=== PATIENT | female | born 1945 | race Caucasian/White ===

== ENCOUNTER 2018-04-28 09:16 | Day surgery (SDC) | payer MEDICARE, BC ==
[~2018-04-28] VITALS: Ht 167.6 cm; Wt 107.4 kg
[~2018-04-28 09:16] MED LIST: ACIDOPHILUS; ATEN50; ATEN50 PO; CIPR500 PO; CITA20 PO; DIGO.25; DILT180; DRON400T; DRON400T PO; ESCI10; ESCI10 PO; ESTMETHS; FENT50TP TOP; FLEC100; FLEC100 PO; FLEC50 PO; GABA100; GLUCHON PO; HYDACE5 PO; HYDR1TAB94; IRBHYD300; MULVITA; OXYACE5T PO; PHENA200 PO; PREG75; PROM25 PO; SAVELLA PO; TRIHYD253A; TRIHYD253B PO; WARF4 PO; WARF5; WARF5 PO; ZOLP10; ZOLP10 PO; [UNRECOGNIZED DRUG - OTHER]
== END 2018-04-28 11:44 | disposition home or self-care (01) ==
LOC: ORSCSDS 09:16
PROVIDERS: Internal Medicine Gastroenterology
PROC: 0DBM8ZX Excision of Descending Colon, Via Natural or Artificial Opening Endoscopic, Diagnostic (ICD-10-PCS; principal; 2018-04-28 10:45)
PROC: 0DBP8ZX Excision of Rectum, Via Natural or Artificial Opening Endoscopic, Diagnostic (ICD-10-PCS; principal; 2018-04-28 10:45)
DX: Z12.11 Encounter for screening for malignant neoplasm of colon (principal); Z86.010 Personal history of colon polyps; K63.5 Polyp of colon; K62.1 Rectal polyp; K63.89 Other specified diseases of intestine; K64.8 Other hemorrhoids; K57.30 Diverticulosis of large intestine without perforation or abscess without bleeding; I10 Essential (primary) hypertension; M79.7 Fibromyalgia; I48.0 Paroxysmal atrial fibrillation; Z87.891 Personal history of nicotine dependence; Z79.01 Long term (current) use of anticoagulants; Z79.899 Other long term (current) drug therapy
CPT/HCPCS: 88305; J7120

== ENCOUNTER → 2018-12-21 | Outpatient (CLI) | payer MEDICARE, BC | END | disposition home or self-care (01) | LOC: LAB 11:34 → LAB SHORT 11:34 | DX: B35.6 Tinea cruris (principal); N76.4 Abscess of vulva | CPT/HCPCS: 87070; 87075; 87205 ==

== ENCOUNTER → 2019-01-14 | Outpatient (CLI) | payer MEDICARE, BC | END | disposition home or self-care (01) | LOC: LAB 11:20 → LAB SHORT 11:20 | DX: N76.4 Abscess of vulva (principal) | CPT/HCPCS: 87070; 87075; 87205 ==

== ENCOUNTER → 2019-01-28 | Outpatient (CLI) | payer MEDICARE, BC | END | disposition home or self-care (01) | LOC: LAB SHORT 11:42 → LAB 11:42 | DX: N76.4 Abscess of vulva (principal) | CPT/HCPCS: 87070; 87075; 87205 ==

== ENCOUNTER 2019-07-01 17:43 | Emergency (ER) | payer MEDICARE, BC ==
[~2019-07-01] VITALS: Ht 167.6 cm; Wt 108.9 kg
[2019-07-01 18:11] LABS: Source, Urine Clean Catch
[2019-07-01 18:13] LABS: BASOPHILS ABSOLUTE AUTO 0.05 K/mm3 (0.00-0.23); BASOPHILS PERCENT AUTO 1 % (0-2); EOSINOPHILS ABSOLUTE AUTO 0.19 K/mm3 (0.00-0.68); EOSINOPHILS PERCENT AUTO 2 % (0-6); Hemoglobin 12.9 g/dL (11.5-16.0); IMMATURE GRAN ABSOLUTE AUTO 0.02 K/mm3 (0.00-0.10); IMMATURE GRAN PERCENT AUTO 0 % (0-1); LYMPHOCYTES ABSOLUTE AUTO 3.89 K/mm3 (0.84-5.20); LYMPHOCYTES PERCENT AUTO 41 % (21-46); MONOCYTES ABSOLUTE AUTO 1.42 K/mm3 (0.16-1.47); MONOCYTES PERCENT AUTO 15 % (4-13); Mean Corpuscular HGB 30.5 pg (26.0-34.0); Mean Corpuscular HGB Conc 32.3 g/dL (31.5-36.5); Mean Corpuscular Volume 95 fL (80-100); Mean Platelet Volume 9.7 fL (9.1-12.4); NEUTROPHILS ABSOLUTE AUTO 3.96 K/mm3 (1.96-9.15); NEUTROPHILS PERCENT AUTO 42 % (41-73); Platelet Count 280 K/mm3 (150-400); RDW Coefficient Variation 13.1 % (11.7-14.2); RDW Standard Deviation 45.2 fL (35.1-46.3); Red Blood Cell Count 4.23 M/mm3 (3.80-5.20); White Blood Cell Count 9.53 K/mm3 (4.00-11.30)
[2019-07-01 18:22] LABS: Bilirubin, Urine Neg (Neg); Blood, Urine 1+ (Neg); Glucose Qualitative, Urine Neg (Neg); Ketones, Urine Neg (Neg); Leukocyte Esterase, Urine 2+ (Neg); Nitrite, Urine Neg (Neg); Protein, Urine Neg (Neg); Urobilinogen, Urine NORM (Normal)
[2019-07-01 18:33] LABS: Prothrombin Time Results 53.9 Sec (9.7-11.5)
[2019-07-01 18:34] LABS: Appearance, Urine Hazy (Clear); Color, Urine Yellow (P-Yellow)
[2019-07-01 18:36] LABS: Red Blood Cells, Urine 0-2 /hpf (0-2); Squamous Epithelial Cells Mod /hpf (Few)
[2019-07-01 18:36] LABS: Alanine Aminotransfer (ALT/SGP 19 U/L (12-78); Albumin, Blood 3.3 g/dL (3.4-5.0); Albumin/Globulin Ratio 0.8 (0.8-1.8); Alk Phos 72 U/L (50-136); Anion Gap 6 mmol/L (6-16); Aspartate Aminotrans (AST/SGOT 21 U/L (12-37); Bilirubin, Total 0.3 mg/dL (0.1-1.0); Blood Urea Nitrogen 32 mg/dL (8-24); Bun/Creatinine Ratio 21.3 (12.0-20.0); CO2, Blood 24 mmol/L (21-32); Calcium, Blood 8.5 mg/dL (8.5-10.1); Chloride, Blood 105 mmol/L (98-108); Glomerular Filtration Rate 36 (60-); Glucose, Blood 105 mg/dL (70-99); Sodium, Blood 135 mmol/L (136-145); Total Protein, Blood 7.3 g/dL (6.4-8.2); Troponin I <0.015 ng/mL (0.000-0.040)
[2019-07-01 18:37] LABS: Bacteria Few /hpf
[2019-07-01 18:42] LABS: International Normalized Ratio 5.98
== END 2019-07-01 19:48 | disposition home or self-care (01) ==
LOC: ER 17:43
PROVIDERS: Emergency Medicine
DX: S00.03XA Contusion of scalp, initial encounter (principal); R10.13 Epigastric pain; R79.1 Abnormal coagulation profile; I48.91 Unspecified atrial fibrillation; F32.9 Major depressive disorder, single episode, unspecified; Z88.0 Allergy status to penicillin; Z88.2 Allergy status to sulfonamides; Z88.5 Allergy status to narcotic agent; Z88.1 Allergy status to other antibiotic agents; Z88.6 Allergy status to analgesic agent; Z88.8 Allergy status to other drugs, medicaments and biological substances; Z79.01 Long term (current) use of anticoagulants; Z79.899 Other long term (current) drug therapy; X58.XXXA Exposure to other specified factors, initial encounter
CPT/HCPCS: 36415; 70450; 71046; 80053; 81001; 84484; 85025; 85610; 87086; 93005; 93010; 96374; 99285-25; A9270-GY; J2550

== ENCOUNTER 2020-12-06 10:06 | Emergency (ER) | payer MEDICARE, BC ==
[~2020-12-06] VITALS: Ht 167.6 cm; Wt 108.0 kg
[2020-12-06] MEDS ORDERED: AMLO5 PO (10:21)
[2020-12-06] MEDS ORDERED: DRON400T (10:21)
[2020-12-06 11:40] LABS: BASOPHILS ABSOLUTE AUTO 0.02 K/mm3 (0.00-0.23); BASOPHILS PERCENT AUTO 0 % (0-2); EOSINOPHILS ABSOLUTE AUTO 0.01 K/mm3 (0.00-0.68); EOSINOPHILS PERCENT AUTO 0 % (0-6); Hematocrit 45.4 % (33.0-51.0); Hemoglobin 15.1 g/dL (11.5-16.0); IMMATURE GRAN ABSOLUTE AUTO 0.04 K/mm3 (0.00-0.10); IMMATURE GRAN PERCENT AUTO 1 % (0-1); LYMPHOCYTES ABSOLUTE AUTO 1.25 K/mm3 (0.84-5.20); LYMPHOCYTES PERCENT AUTO 16 % (21-46); MONOCYTES ABSOLUTE AUTO 1.15 K/mm3 (0.16-1.47); MONOCYTES PERCENT AUTO 15 % (4-13); Mean Corpuscular HGB 30.2 pg (26.0-34.0); Mean Corpuscular HGB Conc 33.3 g/dL (31.5-36.5); Mean Corpuscular Volume 91 fL (80-100); Mean Platelet Volume 9.5 fL (9.1-12.4); NEUTROPHILS ABSOLUTE AUTO 5.16 K/mm3 (1.96-9.15); NEUTROPHILS PERCENT AUTO 68 % (41-73); Platelet Count 312 K/mm3 (150-400); RDW Coefficient Variation 12.8 % (11.7-14.2); RDW Standard Deviation 42.5 fL (35.1-46.3); White Blood Cell Count 7.63 K/mm3 (4.00-11.30)
[2020-12-06 11:53] LABS: Albumin, Blood 2.9 g/dL (3.4-5.0); Albumin/Globulin Ratio 0.6 (0.8-1.8); Bilirubin, Total 0.5 mg/dL (0.1-1.0); Bun/Creatinine Ratio 33.3 (12.0-20.0); Calcium, Blood 9.1 mg/dL (8.5-10.1); Creatinine, Blood 1.11 mg/dL (0.40-1.00); Globulin, Blood 4.6 g/dL (2.2-4.0); Potassium, Blood 3.4 mmol/L (3.5-5.5); Total Protein, Blood 7.5 g/dL (6.4-8.2)
[2020-12-06] MEDS ORDERED: POTA20PAC PO (12:46)
[2020-12-06] MEDS ORDERED: PROM25 PO (12:46)
== END 2020-12-06 13:29 | disposition home or self-care (01) ==
LOC: ER 10:06
PROVIDERS: Emergency Medicine
DX: U07.1 COVID-19 (principal); I48.91 Unspecified atrial fibrillation; E87.6 Hypokalemia; I25.10 Atherosclerotic heart disease of native coronary artery without angina pectoris; I10 Essential (primary) hypertension; K21.9 Gastro-esophageal reflux disease without esophagitis; Z79.899 Other long term (current) drug therapy; Z79.01 Long term (current) use of anticoagulants; Z88.0 Allergy status to penicillin; Z88.2 Allergy status to sulfonamides; Z88.5 Allergy status to narcotic agent; Z88.6 Allergy status to analgesic agent; Z88.1 Allergy status to other antibiotic agents; Z88.8 Allergy status to other drugs, medicaments and biological substances
CPT/HCPCS: 36415; 71045; 80053; 85025; 93005; 93010; 96361; 96374; 99284-25; J2405; J7030

== ENCOUNTER 2021-08-03 06:42 | Inpatient (IN) | payer MEDICARE, BC ==
[~2021-08-03] VITALS: Ht 157.5 cm; Wt 121.6 kg
[~2021-08-03 06:42] MED LIST changes: +AMLO5 PO; +POTA20PAC PO
[2021-08-03 09:31] LABS: BASOPHILS ABSOLUTE AUTO 0.05 K/mm3 (0.00-0.23); BASOPHILS PERCENT AUTO 1 % (0-2); EOSINOPHILS ABSOLUTE AUTO 0.09 K/mm3 (0.00-0.68); EOSINOPHILS PERCENT AUTO 1 % (0-6); Hematocrit 43.7 % (33.0-51.0); Hemoglobin 14.7 g/dL (11.5-16.0); IMMATURE GRAN ABSOLUTE AUTO 0.03 K/mm3 (0.00-0.10); IMMATURE GRAN PERCENT AUTO 0 % (0-1); LYMPHOCYTES ABSOLUTE AUTO 1.44 K/mm3 (0.84-5.20); LYMPHOCYTES PERCENT AUTO 14 % (21-46); MONOCYTES ABSOLUTE AUTO 0.73 K/mm3 (0.16-1.47); MONOCYTES PERCENT AUTO 7 % (4-13); Mean Corpuscular HGB 32.5 pg (26.0-34.0); Mean Corpuscular HGB Conc 33.6 g/dL (31.5-36.5); Mean Corpuscular Volume 97 fL (80-100); Mean Platelet Volume 8.9 fL (9.1-12.4); NEUTROPHILS ABSOLUTE AUTO 7.87 K/mm3 (1.96-9.15); NEUTROPHILS PERCENT AUTO 77 % (41-73); Platelet Count 312 K/mm3 (150-400); RDW Coefficient Variation 13.5 % (11.7-14.2); RDW Standard Deviation 48.1 fL (35.1-46.3); Red Blood Cell Count 4.52 M/mm3 (3.80-5.20); White Blood Cell Count 10.21 K/mm3 (4.00-11.30)
[2021-08-03 09:47] LABS: International Normalized Ratio 1.67; Prothrombin Time Results 17.5 Sec (9.7-11.5)
[2021-08-03 09:52] LABS: Bun/Creatinine Ratio 23.3 (12.0-20.0); Calcium, Blood 9.4 mg/dL (8.5-10.1); Creatinine, Blood 1.16 mg/dL (0.40-1.00); Potassium, Blood 4.1 mmol/L (3.5-5.5)
[2021-08-03 10:23] LABS: SARS-Cov-2 (COVID-19) PCR, MMC NEGATIVE (NEGATIVE)
--- NOTE | 2021-08-03 11:45 | NUR ---
RECEIVED PT FROM ER. PT PLEASANT AND A&O X4. PT REPORTS PAIN AT 8/10 AT THIS TIME. WILL MEDICATE PER EMAR. TRANSFERRED PT TO HOSPITAL BED. TOLERATED WELL.
--- NOTE | 2021-08-03 13:52 | NUR ---
TELE APPLIED AND VERIFIED AT THIS TIME. AFLUTTER, HR 128
--- NOTE | 2021-08-03 14:05 | NUR ---
DR. LOPES NOTIFIED OF PT HR 128 AND AFLUTTER. PT DENIES CP, SEE OTHER VS. WILL GIVE PT'S HOME DOSE OF ATENOLOL NOW AND CTM.
--- NOTE | 2021-08-03 17:46 | NUR ---
SHIFT SUMMARY PT ADMITED FOR R HIP FRACTURE THAT HAPPENED WHILE WORKING IN HER [place]ARD[place] AND TWISTING THE WRONG WAY. SHE HAS BEEN WALKING ON IT X2 WEEKS. PT HAS A H/O AFIB, CVD, DEPRESSION AND INSOMNIA. TELE IN PLACE. PT HAS BEEN TACHY IN LOW 100'S TODAY DUE TO NOT TAKING HER MEDS THIS AM. MEDICATED PER EMAR. NPO AFTER MIDNIGHT. SURGERY TOMORROW AT 0830. INR TO BE DRAWN TOMORROW MORNING. INR NEEDS TO BE 1.2 OR BETTER PER . SCD'S IN PLACE. PT PAIN IN TOLERABLE PER PT. WILL MEDICATE PER EMAR. CALL LIGHT WITHIN REACH.
[2021-08-04 05:06] LABS: BASOPHILS ABSOLUTE AUTO 0.01 K/mm3 (0.00-0.23); BASOPHILS PERCENT AUTO 0 % (0-2); EOSINOPHILS PERCENT AUTO 0 % (0-6); Hemoglobin 14.4 g/dL (11.5-16.0); IMMATURE GRAN ABSOLUTE AUTO 0.04 K/mm3 (0.00-0.10); IMMATURE GRAN PERCENT AUTO 0 % (0-1); LYMPHOCYTES ABSOLUTE AUTO 1.51 K/mm3 (0.84-5.20); LYMPHOCYTES PERCENT AUTO 14 % (21-46); MONOCYTES ABSOLUTE AUTO 0.81 K/mm3 (0.16-1.47); MONOCYTES PERCENT AUTO 8 % (4-13); Mean Corpuscular HGB 31.9 pg (26.0-34.0); Mean Corpuscular HGB Conc 32.7 g/dL (31.5-36.5); Mean Corpuscular Volume 98 fL (80-100); Mean Platelet Volume 9.4 fL (9.1-12.4); NEUTROPHILS ABSOLUTE AUTO 8.12 K/mm3 (1.96-9.15); NEUTROPHILS PERCENT AUTO 77 % (41-73); Platelet Count 306 K/mm3 (150-400); RDW Coefficient Variation 13.5 % (11.7-14.2); RDW Standard Deviation 49.3 fL (35.1-46.3); Red Blood Cell Count 4.51 M/mm3 (3.80-5.20); White Blood Cell Count 10.49 K/mm3 (4.00-11.30)
[2021-08-04 05:25] LABS: International Normalized Ratio 1.05; Prothrombin Time Results 11.3 Sec (9.7-11.5)
[2021-08-04 05:38] LABS: Albumin/Globulin Ratio 0.7 (0.8-1.8); Bilirubin, Total 0.6 mg/dL (0.1-1.0); Bun/Creatinine Ratio 28.3 (12.0-20.0); Calcium, Blood 9.2 mg/dL (8.5-10.1); Creatinine, Blood 1.13 mg/dL (0.40-1.00); Globulin, Blood 4.2 g/dL (2.2-4.0); Potassium, Blood 4.6 mmol/L (3.5-5.5); Total Protein, Blood 7.2 g/dL (6.4-8.2)
--- NOTE | 2021-08-04 08:15 | NUR ---
PT WENT TO OR. PT WAS SITTING UP IN BED AND A&O X4 ON ROOM AIR. ALL FORMS FILLED OUT. BELONGINGS AT BEDSIDE.
--- NOTE | 2021-08-04 10:35 | NUR ---
08/04/21 1035 MAGGIE,KIANA PT NOTED TO HAVE PRE EXISTING DIEZ IN PLACE INTRA OP.
--- NOTE | 2021-08-04 15:14 | NUR ---
POST OP: REPORT RECEIVED FROM PATTERNMAKER HELPERRITO SUAREZ. PT TO UNIT AT ABOUT 1250. PT IS A/O, A BIT DROWSY, AWAKENS TO VOICE. VSS. SURGICAL SITE WNL, ICE PACK IN PLACE. PT TEARFUL AND REPORTS THAT SHE IS NOT PAINFUL, JUST THAT SHE IS TIRED. PT EXPRESSED SORROW TO STAFF PRE OP DUE TO HER PASSING AWAY 2 MONTHS AGO. WILL CTM.
--- NOTE | 2021-08-04 18:49 | NUR ---
SHIFT SUMMARY PT IS POD 0 FOR R TOTAL HIP ARTHROPLASTY. PT TOLERATED PROCEDURE WELL. PT HAD SOME ITCHING ON SCALP FOLLOWING PROCEDURE. ORDER FOR BENADRYL WAS OBTAINED BUT SYMPTOMS RESOLVED ON THEIR OWN. TELE IS IN PLACE. POLAR PACK APPLIED TO RIGHT HIP. PT HAS A DIEZ IN PLACE THAT IS PATENT AND FUNCTIONING, DRAINING DARK YELLOW URINE. IV IN LEFT HAND STARTED LEAKING AND NEW IV WAS STARTED ON RIGHT FOREARM. BULKY GAUZE DRESSING X2 ON RIGHT HIP AND LOWER RIGHT ABD C/D/I. PT A&O 4.
[2021-08-05 04:15] LABS: BASOPHILS ABSOLUTE AUTO 0.01 K/mm3 (0.00-0.23); BASOPHILS PERCENT AUTO 0 % (0-2); EOSINOPHILS PERCENT AUTO 0 % (0-6); Hematocrit 35.4 % (33.0-51.0); Hemoglobin 11.7 g/dL (11.5-16.0); IMMATURE GRAN ABSOLUTE AUTO 0.06 K/mm3 (0.00-0.10); IMMATURE GRAN PERCENT AUTO 0 % (0-1); LYMPHOCYTES PERCENT AUTO 6 % (21-46); MONOCYTES ABSOLUTE AUTO 1.28 K/mm3 (0.16-1.47); MONOCYTES PERCENT AUTO 9 % (4-13); Mean Corpuscular HGB 32.3 pg (26.0-34.0); Mean Corpuscular HGB Conc 33.1 g/dL (31.5-36.5); Mean Corpuscular Volume 98 fL (80-100); Mean Platelet Volume 9.5 fL (9.1-12.4); NEUTROPHILS ABSOLUTE AUTO 11.76 K/mm3 (1.96-9.15); NEUTROPHILS PERCENT AUTO 84 % (41-73); Platelet Count 260 K/mm3 (150-400); RDW Coefficient Variation 13.3 % (11.7-14.2); RDW Standard Deviation 47.8 fL (35.1-46.3); Red Blood Cell Count 3.62 M/mm3 (3.80-5.20); White Blood Cell Count 14.01 K/mm3 (4.00-11.30)
[2021-08-05 04:27] LABS: International Normalized Ratio 1.04; Prothrombin Time Results 11.2 Sec (9.7-11.5)
[2021-08-05 04:34] LABS: Bun/Creatinine Ratio 30.9 (12.0-20.0); Calcium, Blood 8.6 mg/dL (8.5-10.1); Creatinine, Blood 1.23 mg/dL (0.40-1.00); Potassium, Blood 4.6 mmol/L (3.5-5.5)
--- NOTE | 2021-08-05 07:28 | NUR ---
SUMMARY PT HOPING TO BE DISCHARGED TO HOME WITH DAUGHTER TODAY.
--- NOTE | 2021-08-05 15:22 | NUR ---
DR GARCIA ROUNDED ON PT AND REPORTS PT OKAY TO DISCHARGE BY HOSPITALIST SERVICE. PLAN IS TO DC HOME WITH HOME HEALTH.
[2021-08-05] MEDS ORDERED: Acetaminophen325 M1 PO (16:47)
[2021-08-05] MEDS ORDERED: BISA5EC PO (16:48)
[2021-08-05] MEDS ORDERED: DOCU100 PO (16:49)
[2021-08-05] MEDS ORDERED: SULTRIDS PO (16:58)
--- NOTE | 2021-08-05 17:50 | NUR ---
DISCHARGE PT A&O X4. PT PROVIDED WITH WRITTEN AND VERBAL DISCHARGE INSTRUCTION. PT VERBALIZED UNDERSTANDING. PT VSS, PPP, TOLERATING ORAL INTAKE. IV, TELE, AND CATH REMOVED, VOIDING WELL. PT PROVIDED W/ PERSONAL BELONGINGS, SCRIPT AND EXTRA AQUACEL FOR BANDAGE CHANGE. DRESSING C/D/I. PT TRANSPORTED TO [facility]IA , DAUGHTER PROVIDING TRANSPORT.
== END 2021-08-05 17:45 | disposition home health service (06) | DRG 956 ==
LOC: ER 06:42 → MEDS 10:39 → SURS 10:39
PROVIDERS: Emergency Medicine; Orthopaedic Surgery; ADMIT Hospitalist
PROC: 8E0YXBZ Computer Assisted Procedure of Lower Extremity (ICD-10-PCS; 2021-08-04)
PROC: 0SR904A Replacement of Right Hip Joint with Ceramic on Polyethylene Synthetic Substitute, Uncemented, Open Approach (ICD-10-PCS; principal; 2021-08-04 08:30)
DX: S72.051A Unspecified fracture of head of right femur, initial encounter for closed fracture (principal); S32.491A Other specified fracture of right acetabulum, initial encounter for closed fracture; Z68.42 Body mass index [BMI] 45.0-49.9, adult; Z20.822 Contact with and (suspected) exposure to COVID-19; S72.001A Fracture of unspecified part of neck of right femur, initial encounter for closed fracture; M16.11 Unilateral primary osteoarthritis, right hip; I48.91 Unspecified atrial fibrillation; F32.9 Major depressive disorder, single episode, unspecified; G47.00 Insomnia, unspecified; I67.9 Cerebrovascular disease, unspecified; I10 Essential (primary) hypertension; K21.9 Gastro-esophageal reflux disease without esophagitis; G47.33 Obstructive sleep apnea (adult) (pediatric); E66.01 Morbid (severe) obesity due to excess calories; X58.XXXA Exposure to other specified factors, initial encounter; Z87.891 Personal history of nicotine dependence; Z79.01 Long term (current) use of anticoagulants; Z79.899 Other long term (current) drug therapy; Z88.1 Allergy status to other antibiotic agents; Z88.0 Allergy status to penicillin; Z88.2 Allergy status to sulfonamides; Z88.5 Allergy status to narcotic agent
CPT/HCPCS: 36415; 51702; 72170; 72192; 73502; 80048; 80053; 83735; 85025; 85610; 85730; 93005; 93010; 94762; 96372; 97110; 97116; 97162; 97165; 97530; 99285-25; A9270; C1713; C1776; J0171; J0735; J1100; J1644; J1885; J2370; J2405; J2704; J2710; J2795; J3010; J3370; J3430; U0004

== ENCOUNTER → 2021-08-13 | Outpatient (CLI) | payer MEDICARE, BC ==
[~2021-08-13] MED LIST changes: +Acetaminophen325 M1 PO; +BISA5EC PO; +DOCU100 PO; +SULTRIDS PO
== END | disposition home or self-care (01) ==
LOC: LAB SHORT 14:01 → LAB 14:01
DX: R35.0 Frequency of micturition (principal)
CPT/HCPCS: 87086

== ENCOUNTER → 2022-02-18 | Outpatient (CLI) | payer MEDICARE, BC ==
[2022-02-20 11:11] LABS: M-SPIKE, % Not Observed % (Not Observed); PROTEIN,TOTAL,URINE <4.0 mg/dL (Not Estab.)
== END | disposition home or self-care (01) ==
LOC: LAB SHORT 11:00 → LAB 11:00 → LAB FUT 02-14 13:40
PROVIDERS: Internal Medicine Nephrology
DX: N18.32 Chronic kidney disease, stage 3b (principal)
CPT/HCPCS: 84156; 84166

== ENCOUNTER → 2022-07-29 | Outpatient (CLI) | payer MEDICARE, BC | END | disposition home or self-care (01) | LOC: LAB 12:16 → LAB SHORT 12:16 | DX: L02.215 Cutaneous abscess of perineum (principal) | CPT/HCPCS: 87070; 87075; 87205 ==

== ENCOUNTER → 2022-09-26 | Outpatient (CLI) | payer MEDICARE, BC | END | disposition home or self-care (01) | LOC: LAB 11:43 → LAB SHORT 11:43 | DX: R19.7 Diarrhea, unspecified (principal) | CPT/HCPCS: 87329 ==

== ENCOUNTER 2022-10-10 09:11 | Emergency (ER) | payer MEDICARE, BC ==
[~2022-10-10] VITALS: Ht 167.6 cm; Wt 106.1 kg
[2022-10-10 09:49] LABS: BASOPHILS ABSOLUTE AUTO 0.03 K/mm3 (0.00-0.23); BASOPHILS PERCENT AUTO 0 % (0-2); EOSINOPHILS PERCENT AUTO 0 % (0-6); Hematocrit 42.9 % (33.0-51.0); IMMATURE GRAN ABSOLUTE AUTO 0.03 K/mm3 (0.00-0.10); IMMATURE GRAN PERCENT AUTO 0 % (0-1); LYMPHOCYTES ABSOLUTE AUTO 1.11 K/mm3 (0.84-5.20); LYMPHOCYTES PERCENT AUTO 12 % (21-46); MONOCYTES ABSOLUTE AUTO 1.56 K/mm3 (0.16-1.47); MONOCYTES PERCENT AUTO 16 % (4-13); Mean Corpuscular HGB 30.4 pg (26.0-34.0); Mean Corpuscular HGB Conc 32.6 g/dL (31.5-36.5); Mean Corpuscular Volume 93 fL (80-100); Mean Platelet Volume 9.6 fL (9.1-12.4); NEUTROPHILS PERCENT AUTO 71 % (41-73); Platelet Count 201 K/mm3 (150-400); RDW Standard Deviation 44.6 fL (35.1-46.3); Red Blood Cell Count 4.61 M/mm3 (3.80-5.20); White Blood Cell Count 9.53 K/mm3 (4.00-11.30)
[2022-10-10 10:08] LABS: Albumin, Blood 3.1 g/dL (3.4-5.0); Albumin/Globulin Ratio 0.8 (0.8-1.8); Bilirubin, Total 0.6 mg/dL (0.1-1.0); Bun/Creatinine Ratio 16.8 (12.0-20.0); Calcium, Blood 8.7 mg/dL (8.5-10.1); Creatinine, Blood 1.19 mg/dL (0.40-1.00); Globulin, Blood 4.1 g/dL (2.2-4.0); Potassium, Blood 3.5 mmol/L (3.5-5.5); Total Protein, Blood 7.2 g/dL (6.4-8.2)
[2022-10-10 10:28] LABS: Influenza B, PCR NEGATIVE (NEGATIVE); Resp Syncytial Virus, PCR NEGATIVE (NEGATIVE); SARS-Cov-2 (COVID-19) PCR, MMC NEGATIVE (NEGATIVE)
[2022-10-10 10:38] LABS: Influenza A, PCR POSITIVE (NEGATIVE)
== END 2022-10-10 11:39 | disposition home or self-care (01) ==
LOC: ER 09:11
PROVIDERS: Emergency Medicine
DX: J10.1 Influenza due to other identified influenza virus with other respiratory manifestations (principal); I48.20 Chronic atrial fibrillation, unspecified; R19.7 Diarrhea, unspecified; Z20.822 Contact with and (suspected) exposure to COVID-19; Z88.2 Allergy status to sulfonamides; Z88.6 Allergy status to analgesic agent; Z88.1 Allergy status to other antibiotic agents; Z88.0 Allergy status to penicillin; Z79.899 Other long term (current) drug therapy; Z79.01 Long term (current) use of anticoagulants
CPT/HCPCS: 0241U; 71045; 80053; 85025; 93005; 93010; J2405; J7030

== ENCOUNTER → 2022-10-24 | Outpatient (CLI) | payer MEDICARE, BC | END | disposition home or self-care (01) | DX: R05.3 Chronic cough (principal) ==

== ENCOUNTER 2023-09-24 07:09 | Inpatient (IN) | payer MEDICARE, BC ==
[~2023-09-24] VITALS: Ht 167.6 cm; Wt 118.0 kg
[~2023-09-24 07:09] MED LIST changes: +ASCO500 PO; +DILTIAZEM 24HR180 M3 PO; +DYAZIDE 37.5-21 EACH PO; +JANTOVEN2.5 M2 PO; +SILVER SULFADIA2011 TOP; +THERA-D2000 UNIT PO; +TRAZ50 PO
[2023-09-24 07:37] LABS: BASOPHILS ABSOLUTE AUTO 0.02 K/mm3 (0.00-0.23); BASOPHILS PERCENT AUTO 0 % (0-2); EOSINOPHILS ABSOLUTE AUTO 0.01 K/mm3 (0.00-0.68); EOSINOPHILS PERCENT AUTO 0 % (0-6); Hematocrit 42.4 % (33.0-51.0); Hemoglobin 14.1 g/dL (11.5-16.0); IMMATURE GRAN ABSOLUTE AUTO 0.14 K/mm3 (0.00-0.10); IMMATURE GRAN PERCENT AUTO 1 % (0-1); LYMPHOCYTES ABSOLUTE AUTO 2.46 K/mm3 (0.84-5.20); LYMPHOCYTES PERCENT AUTO 10 % (21-46); MONOCYTES PERCENT AUTO 8 % (4-13); Mean Corpuscular HGB 31.3 pg (26.0-34.0); Mean Corpuscular HGB Conc 33.3 g/dL (31.5-36.5); Mean Corpuscular Volume 94 fL (80-100); Mean Platelet Volume 9.7 fL (9.1-12.4); NEUTROPHILS ABSOLUTE AUTO 20.36 K/mm3 (1.96-9.15); NEUTROPHILS PERCENT AUTO 82 % (41-73); Platelet Count 275 K/mm3 (150-400); RDW Coefficient Variation 14.1 % (11.7-14.2); RDW Standard Deviation 48.5 fL (35.1-46.3); Red Blood Cell Count 4.51 M/mm3 (3.80-5.20); White Blood Cell Count 24.99 K/mm3 (4.00-11.30)
[2023-09-24 07:58] LABS: Albumin, Blood 3.1 g/dL (3.4-5.0); Albumin/Globulin Ratio 0.7 (0.8-1.8); Bun/Creatinine Ratio 24.6 (12.0-20.0); Calcium, Blood 9.3 mg/dL (8.5-10.1); Creatinine, Blood 1.22 mg/dL (0.40-1.00); Globulin, Blood 4.5 g/dL (2.2-4.0); Potassium, Blood 4.4 mmol/L (3.5-5.5); Total Protein, Blood 7.6 g/dL (6.4-8.2)
[2023-09-24 08:20] LABS: BASOPHILS PERCENT MAN 0 % (0-2); EOSINOPHILS PERCENT MAN 0 % (0-6); LYMPHOCYTES % ATYPICAL MANUAL 2 % (0-0); LYMPHOCYTES ABSOLUTE MAN 1.99 K/mm3 (0.84-5.20); LYMPHOCYTES PERCENT MAN 6 % (21-46); MONOCYTES ABSOLUTE MAN 1.24 K/mm3 (0.16-1.47); MONOCYTES PERCENT MAN 5 % (4-13); NEUTROPHILS ABSOLUTE MAN 21.74 K/mm3 (1.96-9.15); SEG NEUTROPHILS PERCENT MAN 87 % (41-73); TOTAL CELLS COUNTED 100
[2023-09-24 11:12] LABS: Prothrombin Time Results 80.8 Sec (9.7-11.5)
[2023-09-24 11:21] LABS: International Normalized Ratio 8.7
[2023-09-24 14:04] VITALS: BP 130/85
[2023-09-24] MEDS ORDERED: METF500 PO (14:52)
[2023-09-24] MEDS ORDERED: CENTRUM SILVER1 EAC2 PO (14:53)
[2023-09-24 17:27] LABS: Hematocrit 43.8 % (33.0-51.0); Hemoglobin 14.5 g/dL (11.5-16.0)
--- NOTE | 2023-09-24 19:28 | NUR ---
SHIFT SUMMARY S/P PERFED DIVERTIC, A/O X4, TOLERATING CLEAR DIET, VSS OTHER THAN HEART RATE WHICH WAS ELEVATED WHEN SHE ARRIVED TO THE FLOOR, MEDS PER EMAR, HR DOWN TO 110'S. NO ACUTE EVENTS THIS SHIFT, CALL LIGHT IN REACH.
[2023-09-24 19:36] VITALS: BP 110/72
[2023-09-25 04:07] VITALS: BP 122/83
[2023-09-25 04:47] LABS: BASOPHILS ABSOLUTE AUTO 0.03 K/mm3 (0.00-0.23); BASOPHILS PERCENT AUTO 0 % (0-2); EOSINOPHILS PERCENT AUTO 0 % (0-6); Hematocrit 40.7 % (33.0-51.0); Hemoglobin 13.2 g/dL (11.5-16.0); IMMATURE GRAN ABSOLUTE AUTO 0.17 K/mm3 (0.00-0.10); IMMATURE GRAN PERCENT AUTO 1 % (0-1); LYMPHOCYTES ABSOLUTE AUTO 1.61 K/mm3 (0.84-5.20); LYMPHOCYTES PERCENT AUTO 7 % (21-46); MONOCYTES ABSOLUTE AUTO 1.77 K/mm3 (0.16-1.47); MONOCYTES PERCENT AUTO 7 % (4-13); Mean Corpuscular HGB 31.4 pg (26.0-34.0); Mean Corpuscular HGB Conc 32.4 g/dL (31.5-36.5); Mean Corpuscular Volume 97 fL (80-100); Mean Platelet Volume 9.9 fL (9.1-12.4); NEUTROPHILS ABSOLUTE AUTO 21.36 K/mm3 (1.96-9.15); NEUTROPHILS PERCENT AUTO 86 % (41-73); Platelet Count 280 K/mm3 (150-400); RDW Coefficient Variation 14.3 % (11.7-14.2); RDW Standard Deviation 50.5 fL (35.1-46.3); White Blood Cell Count 24.94 K/mm3 (4.00-11.30)
[2023-09-25 05:19] LABS: Prothrombin Time Results 69.7 Sec (9.7-11.5)
[2023-09-25 05:27] LABS: International Normalized Ratio 7.44
[2023-09-25 05:34] LABS: Bun/Creatinine Ratio 28.1 (12.0-20.0); Calcium, Blood 8.9 mg/dL (8.5-10.1); Creatinine, Blood 1.28 mg/dL (0.40-1.00); Potassium, Blood 4.9 mmol/L (3.5-5.5)
--- NOTE | 2023-09-25 06:10 | NUR ---
SHIFT SUMMARY ADMIT FOR ABD PAIN X5 DAYS, PERF DIVERTIC. PER SHIFT REPORT, NON SURGICAL AT THIS TIME. PT CONTINUES TO C/O 7/10 PAIN, N/V, AND INDEGESTION THIS SHIFT. PT REPORTS PAIN TO ABD THAT RADIATES AROUND TO BACK MORE SO ON LEFT. PT A&OX4, PLEASANT, TEARFUL R/T PAIN AND APOLOGIZING. UP TO BATHROOM W/ SBA SEVERAL TIMES THIS SHIFT. TELEMETRY IN PLACE @106 AFIB PER PIG CASTER. IV INFUSING NS TO R/ AC. WARFARIN ON HOLD R/T cH INR OF 7.44 THIS A.M. THAT IS DECREASED FROM PREVIOUS 8.7 CALL LIGHT W/IN REACH.
[2023-09-25 07:22] VITALS: BP 110/74
[2023-09-25 14:35] VITALS: BP 108/84
--- NOTE | 2023-09-25 14:56 | NUR ---
Pt. is awake in bed and welcomes my visit. Pt. is pleasant, but is unsettled by nausea and has aan emesis bag close by. This elastic yarn twister helper verbalizes that he will keep the visit brief. Facilitate a short discussion regarding plan of care. Pt. welcomed prayer. Prayed with Pt. Pt. verbalized gratitude for the spiritual care visit.
[2023-09-25 19:11] VITALS: BP 111/69
--- NOTE | 2023-09-25 20:16 | NUR ---
SHIFT SUMMARY S/P PERF DIVERTIC, A/OX4, VSS. SHE TOLERATES SMALL SIPS OF WATER PO BUT C/O N/V INTERMITTENTLY, PAIN NOT WELL MANAGED DURING NOC SHIFT WHICH WAS DISCUSSED WITH MD WELL HER NAUSEA. NEW ORDERS OBTAINED FOR PAIN AND NAUSEA IN WHICH PT REPORTS BETTER MANAGEMENT WITH THE DILAUDID. NO OTHER EVENTS THIS SHIFT, CALL LIGHT IN REACH.
[2023-09-26 03:26] VITALS: BP 133/83
[2023-09-26 04:15] LABS: BASOPHILS ABSOLUTE AUTO 0.02 K/mm3 (0.00-0.23); BASOPHILS PERCENT AUTO 0 % (0-2); EOSINOPHILS ABSOLUTE AUTO 0.05 K/mm3 (0.00-0.68); EOSINOPHILS PERCENT AUTO 0 % (0-6); Hemoglobin 11.9 g/dL (11.5-16.0); IMMATURE GRAN ABSOLUTE AUTO 0.13 K/mm3 (0.00-0.10); IMMATURE GRAN PERCENT AUTO 1 % (0-1); LYMPHOCYTES ABSOLUTE AUTO 2.47 K/mm3 (0.84-5.20); LYMPHOCYTES PERCENT AUTO 11 % (21-46); MONOCYTES ABSOLUTE AUTO 1.81 K/mm3 (0.16-1.47); MONOCYTES PERCENT AUTO 8 % (4-13); Mean Corpuscular HGB 31.1 pg (26.0-34.0); Mean Corpuscular HGB Conc 32.2 g/dL (31.5-36.5); Mean Corpuscular Volume 97 fL (80-100); Mean Platelet Volume 9.7 fL (9.1-12.4); NEUTROPHILS ABSOLUTE AUTO 17.56 K/mm3 (1.96-9.15); NEUTROPHILS PERCENT AUTO 80 % (41-73); Platelet Count 280 K/mm3 (150-400); Red Blood Cell Count 3.83 M/mm3 (3.80-5.20); White Blood Cell Count 22.04 K/mm3 (4.00-11.30)
[2023-09-26 04:47] LABS: Albumin, Blood 2.5 g/dL (3.4-5.0); Albumin/Globulin Ratio 0.6 (0.8-1.8); Bilirubin, Total 0.6 mg/dL (0.1-1.0); Bun/Creatinine Ratio 29.9 (12.0-20.0); Calcium, Blood 9.1 mg/dL (8.5-10.1); Creatinine, Blood 1.34 mg/dL (0.40-1.00); Globulin, Blood 4.4 g/dL (2.2-4.0); Potassium, Blood 4.3 mmol/L (3.5-5.5); Total Protein, Blood 6.9 g/dL (6.4-8.2)
--- NOTE | 2023-09-26 05:54 | NUR ---
SUMMARY PT HAD NO ISSUES UNTIL THIS AM. PT WOKE UP VOMITING THIS AM. EMESIS WAS GREEN BILE. PT ALSO REPORTED INCREASE IN DISCOMFORT. PT ISSUES WERE TX PER MAR WITH GOOD RELIEF. PT IS INDEPENDANT IN ROOM AND IS VOIDING WELL. CALL LIGHT IN REACH.
[2023-09-26 07:21] VITALS: BP 132/98
[2023-09-26 10:03] LABS: Prothrombin Time Results 67.4 Sec (9.7-11.5)
[2023-09-26 10:17] LABS: International Normalized Ratio 7.18
[2023-09-26 14:52] VITALS: BP 125/93
--- NOTE | 2023-09-26 16:55 | NUR ---
PT HAS BEEN AOX4 AND INDEPENDENT IN ROOM. PT CONTINUES TO HAVE ABD PAIN. PT STATED PAIN AND NAUSEA HAD WORSENED AFTER MIDNIGHT LAST NIGHT. PT HAD SOME EMESIS AT THE START OF SHIFT AND WAS TREATED PER EMAR. PT HAD TO HAVE ORAL MEDS SPREAD OUT TO TOLERATE TAKING THEM AND SOME WHERE HELD. PT TREATED FOR PAIN PER EMAR. PT ABLE TO MAKE NEEDS KNOWN WILL CONTINUE TO MONITOR.
--- NOTE | 2023-09-26 17:38 | NUR ---
CARE PASSED OVER TO RITO FAM.
[2023-09-26 19:17] VITALS: BP 135/90
--- NOTE | 2023-09-26 19:24 | NUR ---
SHIFT SUMMARY NO ACUTE CHANGES SINCE ASSUMING CARE AT 1730, REPORT TO NEVILLE VERAS.
[2023-09-27] VITALS (22 sets, daily range): BP systolic 90–156; BP diastolic 61–96
--- NOTE | 2023-09-27 05:03 | NUR ---
SUMMARY PT CONTINUES TO HAVE PERIODS OF NAUSEA AND DISCOMFORT. ISSUES HAVE BEEN MANAGED WELL PER MAR. PT HAS BEEN VOIDING WELL. PT NO NEW ISSUES NOTED. PT CURRENTLY SLEEPING WELL. CALL LIGHT IN REACH.
[2023-09-27 10:05] LABS: BASOPHILS ABSOLUTE AUTO 0.02 K/mm3 (0.00-0.23); BASOPHILS PERCENT AUTO 0 % (0-2); EOSINOPHILS ABSOLUTE AUTO 0.14 K/mm3 (0.00-0.68); EOSINOPHILS PERCENT AUTO 1 % (0-6); Hematocrit 34.9 % (33.0-51.0); Hemoglobin 11.5 g/dL (11.5-16.0); IMMATURE GRAN ABSOLUTE AUTO 0.09 K/mm3 (0.00-0.10); IMMATURE GRAN PERCENT AUTO 0 % (0-1); LYMPHOCYTES ABSOLUTE AUTO 1.45 K/mm3 (0.84-5.20); LYMPHOCYTES PERCENT AUTO 7 % (21-46); MONOCYTES ABSOLUTE AUTO 1.76 K/mm3 (0.16-1.47); MONOCYTES PERCENT AUTO 9 % (4-13); Mean Corpuscular HGB 31.6 pg (26.0-34.0); Mean Corpuscular Volume 96 fL (80-100); Mean Platelet Volume 9.2 fL (9.1-12.4); NEUTROPHILS ABSOLUTE AUTO 17.28 K/mm3 (1.96-9.15); NEUTROPHILS PERCENT AUTO 83 % (41-73); Platelet Count 305 K/mm3 (150-400); RDW Coefficient Variation 13.9 % (11.7-14.2); RDW Standard Deviation 49.2 fL (35.1-46.3); Red Blood Cell Count 3.64 M/mm3 (3.80-5.20); White Blood Cell Count 20.74 K/mm3 (4.00-11.30)
[2023-09-27 10:23] LABS: International Normalized Ratio 2.57; Prothrombin Time Results 25.6 Sec (9.7-11.5)
[2023-09-27 10:27] LABS: Bun/Creatinine Ratio 34.3 (12.0-20.0); Calcium, Blood 8.9 mg/dL (8.5-10.1); Creatinine, Blood 1.08 mg/dL (0.40-1.00); Potassium, Blood 4.3 mmol/L (3.5-5.5)
--- NOTE | 2023-09-27 14:50 | NUR ---
PRE-OP PT TO PACU FOR PRE-OP. PT A&OX4, BREATHING 3L O2 VIA NC. GLASSES REMOVED IN PACU. R FA IV RUNNING LR AT TKO. L UPPER ARM POWEGLIDE RUNNING FFP. UNIT STARTED IN PACU BY RITO STEIN, CHECKED WITH RITO LENZ. DENTURES REMOVED IN PACU.
--- NOTE | 2023-09-27 15:21 | NUR ---
PT TAKEN TO OR BY ENOCH GALVAN RN. REPORT GIVEN.ENOCH NOTIFIED THAT 1 OF 4 UNITS OF FFP COMPLETED, LOPRESSOR GIVEN, AND BLOOD DRAW ORDERED FOR 15 MINUTES AFTER FINAL DOSE OF FFP. ALSO FINE CRACKLES NOTED TO LLL AND O2 INCREASED TO 3L SINCE PT'S O2 SATURATION DECREASED TO 88% WHILE ON 2L. O2 SATURATION IMPOROVED TO 91% ON 3L.
--- NOTE | 2023-09-27 15:45 | NUR ---
09/27/23 1545 Clara Inman NO PREOP ANTIBIOTICS ORDERED PATIENT IS ON SCHEDULED ANTIBIOTICS PER .
--- NOTE | 2023-09-27 18:40 | NUR ---
ATTEMPTED TO CALL REPORT TO ORACLE DATABASE MANAGER, GINO BUSBY REQUESTED REPORT BE GIVEN TO NOC RN.
--- NOTE | 2023-09-27 18:50 | NUR ---
TRANSFER TO PCU: PATIENT ARRIVES TO PCU POST SURGERY. ALERT AND ORIENTED, ABLE TO ANSWER QUESTIONS APPROP. COMPLAINS OF ABDOMINAL/BACK PAIN. MIDLINE EXP LAP INCISION WITH MINIMAL DRAINAGE AND NEW BRIGHT RED COLOSTOMY WITH MODERATE BLEEDING IN LEFT LOWER QUAD. EXP LAP MIDLINE INCISION AND COLOSTOMY DRESSING OVERLAPPING, EXP MIDLINE INCISION DRAINAGE LEAKING SMALL AMOUNT RED DRAINAGE INTO COLOSTOMY SITE. NG TUBE SECURED AT NARES AND DRAINING THICK DARK GREEN DRAINAGE TO INTERMIT LOW SUCTION. TELE SHOWING AFIB WITH HR 140-160'S. SBP 90'S. DENIES CHEST PAIN AT THIS TIME. SATING 98% ON 6L AT THIS TIME. DR. BRUNO CALLED AND UPDATED ON PATIENT CONDITION. THIS RN DISCUSSED VITALS, ABDOMINAL PAIN, INCISION SITE/COLOSTOMY, ATRIAL FIBRILLATION, IV METOPROLOL, TOTAL OF 4 UNITS OF FFP, CURRENT NS ORDER, AND OVERALL PATIENT PRESENTATION. LAB TO COME DRAW PT AND INR, NO OTHER LAB ORDERS FROM DR. BRUNO, PLAN FOR DR. BRUNO TO COME TO BEDSIDE AND ASSESS PATIENT HERSELF. FAMILY AT BEDSIDE. ORIENTED TO UNIT AND CALL LIGHT. BED IN LOW AND LOCKED POSITION. POST OP VITALS IN PROGRESS. REPORTED OFF TO HAND CANDY CUTTER RN DEE.
--- NOTE | 2023-09-27 19:00 | NUR ---
ATTEMPTED TO GIVE REPORT TO DEE VERAS, UNABLE TO TAKE REPORT.
--- NOTE | 2023-09-27 19:15 | NUR ---
PT'S MEDICATIONS TAKEN TO PCU AND LOCKED IN LOCK BOX PER ROUTINE. ATTEMPTED TO PROVIDE REPORT, DEE VERAS DECLINED.
[2023-09-27 19:26] LABS: BASOPHILS ABSOLUTE AUTO 0.02 K/mm3 (0.00-0.23); BASOPHILS PERCENT AUTO 0 % (0-2); EOSINOPHILS ABSOLUTE AUTO 0.06 K/mm3 (0.00-0.68); EOSINOPHILS PERCENT AUTO 0 % (0-6); Hemoglobin 12.3 g/dL (11.5-16.0); IMMATURE GRAN ABSOLUTE AUTO 0.07 K/mm3 (0.00-0.10); IMMATURE GRAN PERCENT AUTO 1 % (0-1); LYMPHOCYTES ABSOLUTE AUTO 0.65 K/mm3 (0.84-5.20); LYMPHOCYTES PERCENT AUTO 5 % (21-46); MONOCYTES ABSOLUTE AUTO 1.65 K/mm3 (0.16-1.47); MONOCYTES PERCENT AUTO 12 % (4-13); Mean Corpuscular HGB 31.9 pg (26.0-34.0); Mean Corpuscular HGB Conc 33.2 g/dL (31.5-36.5); Mean Corpuscular Volume 96 fL (80-100); Mean Platelet Volume 9.3 fL (9.1-12.4); NEUTROPHILS ABSOLUTE AUTO 11.64 K/mm3 (1.96-9.15); NEUTROPHILS PERCENT AUTO 83 % (41-73); Platelet Count 342 K/mm3 (150-400); RDW Coefficient Variation 13.8 % (11.7-14.2); RDW Standard Deviation 48.8 fL (35.1-46.3); Red Blood Cell Count 3.86 M/mm3 (3.80-5.20); White Blood Cell Count 14.09 K/mm3 (4.00-11.30)
[2023-09-27 19:40] LABS: International Normalized Ratio 1.4
[2023-09-27 19:45] LABS: Prothrombin Time Results 14.4 Sec (9.7-11.5)
[2023-09-28] VITALS (9 sets, daily range): BP systolic 82–138; BP diastolic 55–109
--- NOTE | 2023-09-28 01:53 | NUR ---
SHIFT SUMMARY PATIENT RECIEVING 75 NS, HR UP TO TH E160'S AFIB TYPICALLY 120-140. PATIENT IN OBVIOUS PAIN, DRVanda AT THE BEDSIDE. DENIES CHEST PAIN PRESSURE OR SOB. BLOOD PRESSURE SOFTER, ABD DRESSING WITH SMALL AMOUNT OF DRAINAGE, NEW COLOSTOMY, WITH MINIMAL DRAINAGE, BOTH CIARA RED. NOT OOZING MORE THAN SEEN ON ARRIVAL .PATIENT WITH SCD'S, REPOSITIONED OLD LINEN OUT, BED BATH GIVEN, TO CHANGE DRESSING IN THE AM. AFTER INCREASED TREATMENT TO PAIN, HR 100-120'S. TYPICALLY 100'S WHILE SLEEPING PATIENT A/OX4 PLEASANT COOPERATIVE WITH CARE, DENIES REPOSITIONS AT TIMES.
[2023-09-28 04:02] LABS: BASOPHILS ABSOLUTE AUTO 0.03 K/mm3 (0.00-0.23); BASOPHILS PERCENT AUTO 0 % (0-2); EOSINOPHILS ABSOLUTE AUTO 0.01 K/mm3 (0.00-0.68); EOSINOPHILS PERCENT AUTO 0 % (0-6); Hematocrit 35.8 % (33.0-51.0); Hemoglobin 11.5 g/dL (11.5-16.0); IMMATURE GRAN ABSOLUTE AUTO 0.13 K/mm3 (0.00-0.10); IMMATURE GRAN PERCENT AUTO 1 % (0-1); LYMPHOCYTES ABSOLUTE AUTO 1.26 K/mm3 (0.84-5.20); LYMPHOCYTES PERCENT AUTO 8 % (21-46); MONOCYTES ABSOLUTE AUTO 1.96 K/mm3 (0.16-1.47); MONOCYTES PERCENT AUTO 12 % (4-13); Mean Corpuscular HGB Conc 32.1 g/dL (31.5-36.5); Mean Corpuscular Volume 97 fL (80-100); Mean Platelet Volume 9.5 fL (9.1-12.4); NEUTROPHILS ABSOLUTE AUTO 12.82 K/mm3 (1.96-9.15); NEUTROPHILS PERCENT AUTO 79 % (41-73); Platelet Count 318 K/mm3 (150-400); RDW Coefficient Variation 13.8 % (11.7-14.2); RDW Standard Deviation 49.4 fL (35.1-46.3); Red Blood Cell Count 3.71 M/mm3 (3.80-5.20); White Blood Cell Count 16.21 K/mm3 (4.00-11.30)
[2023-09-28 04:20] LABS: Albumin/Globulin Ratio 0.5 (0.8-1.8); Bilirubin, Total 2.1 mg/dL (0.1-1.0); Bun/Creatinine Ratio 24.8 (12.0-20.0); Calcium, Blood 8.2 mg/dL (8.5-10.1); Creatinine, Blood 1.65 mg/dL (0.40-1.00); Globulin, Blood 3.7 g/dL (2.2-4.0); Potassium, Blood 5.2 mmol/L (3.5-5.5); Total Protein, Blood 5.7 g/dL (6.4-8.2)
--- NOTE | 2023-09-28 19:48 | NUR ---
Shift Summary Pt alert, oriented x4; calm and cooperative with care. Pt resting in bed, up with 1-2 person assist (to manage tubing/wires). Ng tube in place, 550cc output form last night and today; dark green in color. Pt reporting pain t/o shift, medicated per orders. Pt reporting nauses t/o shift, medicated per orders. Pt denies chest pain/pressure, sob, and dizziness. Tele afib, 100-110's this am, trending up t/o shift, notifed Dr Love and discussed home medication and NPO stasus, new orders entered for lopressor iv scheduled. Bp stable. Abd, soft, tender on palp, with hypoactive bt t/o; no drainage from ostomy t/o shift. Spo2 >90% on 4l o2 via nc, titrated down to 3l o2 via nc. Other vss. No other acute chagnes noted. Report given to oncoming rn.
[2023-09-29] VITALS (25 sets, daily range): BP systolic 104–159; BP diastolic 67–115
--- NOTE | 2023-09-29 05:11 | NUR ---
SUMMARY PT HEART RATE CONTINUALLY RETURNED TO 150'S DESPITE IV LOPRESSOR. PROVIDER WAS CALLED AND A BOLUS OF CARDIZEM WAS ORDERED. PT RATE DECREASED FOR SHORT PERIOD. PT BP'S REMAINED STABLE. PROVIDER CALLED AND A CARDIZEM DRIP WAS ORDERED. AWAITING MEDICATION. PT PAIN HAS BEENMANAGED WELL PER MAR WITH DILAUDID. PT NAUSEA CONTINUES TO REQUIRE MEDS FOR RELIEF. PT NG TUBE CONTINUE TO DRAIN GREEN BILE. PT MIDLINE DRESSING REMAINS INTACT WITH SOME EDGE SHADOWING. PT COLOSTOMY HAD NO NOTED OUTPUT AND STOMA IS RES. PT DIEZ DRAINING TO GRAVITY.
--- NOTE | 2023-09-29 08:02 | NUR ---
AM Note Pt alert, oriented x4, calm and cooperative with care. Pt resting in bed. Pt reporting pain to abd, medicated per emar. Pt reports intermittent nauses, gas pains and belching. Pt denies chest pain/pressure, sob, dizziness and numb/tingling. Tele afib 120-130's, on cardizem gtt titrated up to [address] Love at bedside this am, hr 120-140 after increased cardizem, ok to given lopressor iv now. Spo2 >90% on 3l o2 via nc, titrated down to 2l o2 via nc. Abd soft, tender, hypoactive bt t/o. Llq ostomy noted, continues to be red, slightly bloody and no output. No edema noted at this time. Other vss. Will continue to monitor.
[2023-09-29 09:01] LABS: Bun/Creatinine Ratio 34.7 (12.0-20.0); Calcium, Blood 8.5 mg/dL (8.5-10.1); Creatinine, Blood 1.18 mg/dL (0.40-1.00); Potassium, Blood 4.5 mmol/L (3.5-5.5)
--- NOTE | 2023-09-29 14:37 | NUR ---
Transfer of care Pt hr continues to be in 120-140's, Dr Love aware, new order for lopressor change to q4. Report given to rn assuming care of patient.
--- NOTE | 2023-09-29 16:15 | NUR ---
Pt. is sitting in a recliner and welcomes my visit. Pt. is unsettled about an uncertain plan of care. Facilitate a life review. Listen with empathy and a calming presence. Consider matters of lisa and belief and establish rapport. Pt. displays evidence of increased trust and displays evidence of awareness and engagement. Prayed with Pt. Pt. verbalized gratitude for the spiritual care visit and welcomed this glue mill operator to return.
--- NOTE | 2023-09-29 17:25 | NUR ---
ASSUME CARE AT 1500: PT REMAINS ON CARDIZEM GTT AT 20MG/HR HRR AFIB 120-140'S, METOPROLOL PUSH 5MG IV GIVEN AT 1600 FOLLOWED BY DIG LOAD 30 MINS AFTER RATE AT 100-120'S AT THIS TIME PER DR SORIA TO GIVE THE SECOND DOSE OF DIGOXIN TONIGHT AND WATCH HRR REMAINED THE SAME TO POSSIBLY START AMIO GTT. SBP REMAINED >110, SPO2 ABOVE 90% ON 2L OF O2, AFEBRILE. NGT IN PLACE HOOKED UP TO LOW INTERMITTENT SUCTION HAS DARK GREEN BILE DRAINAGE, PT CONTINUES TO BLADDER TRAIN WILL PULL CATHETER OUT WHEN PT GETS BACK IN BED PER PT'S REQUEST. PAIN MANAGED WITH IV DILAUDID, REGLAN AND ZOFRAN FOR NAUSEA GIVEN WELL. PT OKAY TO HAVE ICE CHIPS PER DR FLORES. COLOSTOMY AND ABD DRESSING REMAINED INTACT. NS RUNNING AT 75MLS/HR. NO OTHER ISSUES REPORTED, WILL REPORT TO ONCOMING SHIFT
[2023-09-30] VITALS (40 sets, daily range): BP systolic 108–138; BP diastolic 54–105
[2023-09-30 04:26] LABS: Calcium, Blood 8.3 mg/dL (8.5-10.1); Creatinine, Blood 1.03 mg/dL (0.40-1.00); Potassium, Blood 4.5 mmol/L (3.5-5.5)
--- NOTE | 2023-09-30 05:09 | NUR ---
SHIFT SUMMARY PT A&Ox4, CALLS AND COMMUNICATES NEEDS APPROPRIATELY. BP STABLE, AFIB 100-130's, DENIES CP/PRESSURE. SpO2> 92% 2-3L VIA NC, DENIES SOB. NG TUBE REMAINS PATENT AND IN PLACE CONNECTED TO LOW-INTERMITTENT SUCTION WITH BROWN/BILE OUTPUT. PT UNABLE TO VOID, MONITORED WITH BLADDER SCANS. ACCURACY TO BLADDER SCANS IS LIMITED D/T MIDLINE INCISION AND OSTOMY. PT WITH C/O OF BLADDER DISCOMFORT AND BLADDER IS DISTENDED, DISCUSSED WITH MOTORCYCLE SALES ASSOCIATE. STRAIGHT CATH DONE WITH 350mLs OUT. NO BM THIS SHIFT. PT WITH C/O NAUSEA WITH NO VOMITING. PT ALSO WITH C/O PAIN THROUGHOUT SHIFT. MIDLINE DRESSING REMAINS PATENT. OSTOMY PATENT, VERY MINIMAL LIQUID RED/BROWN OUTPUT THIS SHIFT. NO OTHER EVENTS, WILL REPORT TO ONCOMING RN.
[2023-09-30 10:13] LABS: Source, Urine Foley catheter
[2023-09-30 10:26] LABS: Appearance, Urine Clear (Clear); Bilirubin, Urine Neg (Neg); Blood, Urine 2+ (Neg); Color, Urine Yellow (P-Yellow); Glucose Qualitative, Urine Neg (Neg); Ketones, Urine 2+ (Neg); Leukocyte Esterase, Urine Neg (Neg); Nitrite, Urine Neg (Neg); Protein, Urine 3+ (Neg); Urobilinogen, Urine NORM (Normal)
[2023-09-30 10:44] LABS: Bacteria Rare /hpf; Hyaline Casts 0-2 /lpf (0-2); Squamous Epithelial Cells Not Seen /hpf (Few); White Blood Cells, Urine Not Seen /hpf (0-5)
--- NOTE | 2023-09-30 10:48 | NUR ---
AM NOTE: PATIENT ALERT AND ORIENTED. EXPRESSES FEELING DEPRESSED AND SAD THIS MORNING. ABLE TO HELP STAFF TURN IN BED. OVERALL WEAKNESS NOTED AND PAIN WHEN MOVING IN BED. DENIES N/T. PT/OT ORDERS IN PLACE. PLAN FOR PATIENT UP IN RECLINER THIS AFTERNOON. ON 3L NASAL CANNULA SATING MID 90'S. DENIES SOB. LUNGS SOUNDS CLEAR AND DIM IN BASES. DENIES COUGH/SOB. EVEN AND UNLABORED RESPIRTATIONS. TELE SHOWING AFIB WITH HR 110-120'S. CARDIZEM GTT INFUSING PER EMAR. SCHEDULED IV METOPROLOL AND IV DIG THIS AM. SEISMOGRAPH CHIEF AWARE OF CARDIAC MEDICATIONS. DENIES CHEST PAIN/PRESSURE/PALPITATIONS. BP STABLE WITH SBP 110-130. PPP. DEXTROSE 5% INFUSING PER EMAR. BOWEL TONES HYPOACTIVE. COMPLAINS OF INTERMIT NAUSEA AND ABDOMINAL PAIN. MIDLINE INCISION WITH MINIMAL DRAINAGE ON DRESSING. COLOSTOMY DRESSING IN PLACE. STOMA BRIGHT RED AND SOME BLOODY DRAINAGE IN BAG. PATIENT IS UNAWARE IF SHE IS PASSING GAS. DENIES BOWEL MOVEMENT. BELCHING AT TIMES. NG TUBE IN PLACE TO LIS, DRAINING DARK GREEN/BROWN TINGED BILE. PATIENT EATING ICE CHIPS. TAPE REPLACED ON NG TUBE. SKIN OVERALL PALE AND COOL WITH SCATTERED BRUISING. DR. SORIA BY THIS AM, THIS RN DISCUSSED HEART RATE, BLOOD PRESSURE, CARDIAC MEDICATIONS, NG DRAINAGE, COLOSTOMY SITE AND URINARY RETENTION WITH STRAIGHT CATHS. ORDERS TO PLACE NEW DIEZ CATH. DIEZ CATH PLACED AND NEW UA SENT TO LAB PER PROTOCOL. ORAL CARE COMPLETED THIS AM. ABX INFUSED. CALL LIGHT IN REACH.
--- NOTE | 2023-09-30 14:03 | NUR ---
DR. FLORES IN TO SEE PATIENT NG TUBE, COLOSTOMY AND MIDLINE INCISION ASSESSED. PLAN TO CONTINUE NG TO LIS, OKAY TO HAVE ICE CHIPS. DR. FLORES AWARE NG TUBE OUTPUT DILUTED WITH ICE CHIP INTAKE. THIS RN SUBTRACTING ICE INTAKE FROM NG OUTPUT. NO NEW ORDERS FOR THIS RN TO PLACE. OT AND PT BY. PATIENT ENCOURAGED TO GET UP TO RECLINER, DECLINES AT THIS TIME. MEDICATED FOR PAIN. CARDIZEM GTT TITRATED DOWN. PATIENT HR 80-90'S AT THIS TIME. REFLEXOLOGIST UPDATED. DENIES NEEDS AT THIS TIME. CALL LIGHT IN REACH.
--- NOTE | 2023-09-30 16:51 | NUR ---
OSTOMY DRESSING AND MIDLINE DRESSING CHANGED. HR TRENDING 90-110'S CARDIZEM GTT TITRATED DOWN. SBP STABLE. INTERMIT NAUSEA - RELIEVED WITH REGLAND AND ZOFRAN. PATIENT CONTINUES TO EAT ICE CHIPS. NG TUBE TO LIS.
--- NOTE | 2023-09-30 18:40 | NUR ---
SHIFT SUMMARY: NO ACUTE CHANGES SEE PREVIOUS NOTES. NG TUBE CONTINUES TO LIS WITH DARK GREEN/BROWN TINGED BILE OUTPUT. PATIENT EATING ICE CHIPS. REMAINS AFIB WITH HR 90-120'S. CARDIZEM GTT AT 10. SBP REMAINS STABLE. PATIENT SLEEPING AT THIS TIME. 3L O2 NASAL CANNULA SATING MID 90'S. OCCASIONAL NAUSEA, RELIEVED WITH PRN MEDS. BOWL TONES PRESENT. NO BOWEL MOVEMENT INTO COLOSTOMY THIS SHIFT. MINIMAL RED TINGED DRAINAGE. OSTOMY BAG/DRESSING CHANGED THIS AFTERNOON. D5 CONTINUES TO INFUSE. DAUGHTER IN TO VISIT THIS AFTERNOON. CALL LIGHT IN REACH.
[2023-10-01] VITALS (37 sets, daily range): BP systolic 110–145; BP diastolic 67–118
[2023-10-01 04:19] LABS: Bun/Creatinine Ratio 25.2 (12.0-20.0); Calcium, Blood 8.1 mg/dL (8.5-10.1); Creatinine, Blood 1.07 mg/dL (0.40-1.00)
--- NOTE | 2023-10-01 05:08 | NUR ---
SHIFT SUMMARY PT A&Ox4, CALLS AND COMMUNICATES NEEDS APPROPRIATELY. BP STABLE, AFIB 80-120's, DENIES CP/PRESSURE. SpO2> 92% 3L VIA NC, DENIES SOB. NG TUBE REMAINS PATENT AND IN PLACE CONNECTED TO LOW-INTERMITTENT SUCTION WITH BROWN/BILE OUTPUT. DIEZ CATH PATENT, DRAINING TO GRAVITY. PT WITH C/O NAUSEA WITH NO VOMITING, PT ALSO WITH C/O PAIN THROUGHOUT SHIFT MEDICATED PBOTH PER EMAR. MIDLINE DRESSING REMAINS PATENT. OSTOMY PATENT, VERY MINIMAL LIQUID RED/BROWN OUTPUT THIS SHIFT. NO OTHER EVENTS, WILL REPORT TO ONCOMING RN.
--- NOTE | 2023-10-01 11:45 | NUR ---
Pt. is sitting up in a chair when she welcomes my visit. Pt. is pleasant. Pt. verbalizes an update on her progress and verbalizes that she is encouraged and wants to get better. Listen with empathy and a calming presence. Pt. verbalizes that she has had good support from family members and her seismic prospecting observer. When asked by this groundsman if she would life a bible, Pt. verbalized that she did. Will bring the Pt. miguelangel BLACK/Melody. Prayed with Pt. Pt. verbalized gratitude for the spiritual care visit.
--- NOTE | 2023-10-01 12:50 | NUR ---
PATIENT ALERT AND ORIENTED. DENIES PAIN THIS AM. MIDLINE INCISION AND COLOSTOMY WNL. DRESSING C/D/I. NO OUTPUT NOTED FROM OSTOMY. STOMA RED IN COLOR. NG TUBE REMAINS IN PLACE TO LIS. DARK GREEN/BROWN OUTPUT. BOWEL TONES HYPOACTIVE. PATIENT DENIES GAS. PATIENT EATING ICE CHIPS. REMAINS NPO OTHERWISE. WEARING 3L NASAL CANNULA SATING MID 90'S. DENIES SOB/COUGH. TELE SHOWING AFIB WITH HR 90-130'S. SCHEDULED IV METOPROLOL PUSHES PER EMAR AND CARDIZEM GTT. DR. SORIA IN THIS AM TO ASSESS. AM IV DIGOXIN DISCONTINUED. SCD'S IN PLACE. DENIES CHEST PAIN/PRESSURE. PPP. UP TO RECLINER WITH OT THIS AM AND BACK TO BED. VITALS STABLE.
--- NOTE | 2023-10-01 13:11 | NUR ---
DR. FLORES CALLED BY THIS RN TO DISCUSS COLOSTOMY, NG TUBE TO LIS AND ITS OUTPUT. DR. FLORES AWARE OF OSTOMY BEING NONPRODUCTIVE AT THIS POINT AND T CONTINUE NG TUBE TO LIS, OKAY TO CONTINUE ICE CHIPS. DR. FLORES OKAY WITH STARTING HEPARIN GTT. DR. SORIA CALLED AND UPDATED ON DR. FLORES'S VERBAL OKAY FOR HEPARIN. DR. SORIA TO PLACE ORDERS. PATIENT SLEEPING AT THIS TIME, CALL LIGHT IN REACH.
[2023-10-01 14:12] LABS: Anti-Xa UFH, PHA Monitoring <0.10 IU/mL; International Normalized Ratio 1.19; Prothrombin Time Results 12.4 Sec (9.7-11.5)
[2023-10-01 14:20] LABS: BASOPHILS ABSOLUTE AUTO 0.03 K/mm3 (0.00-0.23); BASOPHILS PERCENT AUTO 0 % (0-2); EOSINOPHILS ABSOLUTE AUTO 0.15 K/mm3 (0.00-0.68); EOSINOPHILS PERCENT AUTO 1 % (0-6); Hemoglobin 9.8 g/dL (11.5-16.0); IMMATURE GRAN ABSOLUTE AUTO 0.31 K/mm3 (0.00-0.10); IMMATURE GRAN PERCENT AUTO 3 % (0-1); LYMPHOCYTES ABSOLUTE AUTO 1.31 K/mm3 (0.84-5.20); LYMPHOCYTES PERCENT AUTO 11 % (21-46); MONOCYTES ABSOLUTE AUTO 1.32 K/mm3 (0.16-1.47); MONOCYTES PERCENT AUTO 11 % (4-13); Mean Corpuscular HGB 31.1 pg (26.0-34.0); Mean Corpuscular HGB Conc 31.6 g/dL (31.5-36.5); Mean Corpuscular Volume 98 fL (80-100); Mean Platelet Volume 9.1 fL (9.1-12.4); NEUTROPHILS ABSOLUTE AUTO 8.74 K/mm3 (1.96-9.15); NEUTROPHILS PERCENT AUTO 74 % (41-73); NRBC ABSOLUTE 0.04 K/mm3 (0.00-0.02); NRBC Auto 0.3 /100 WBC (0.0-0.2); Platelet Count 331 K/mm3 (150-400); RDW Standard Deviation 50.8 fL (35.1-46.3); Red Blood Cell Count 3.15 M/mm3 (3.80-5.20); White Blood Cell Count 11.86 K/mm3 (4.00-11.30)
--- NOTE | 2023-10-01 15:03 | NUR ---
HEPARIN GTT STARTED PER PHARMACY. PHYSICAL THERAPY IN ROOM AT THIS TIME. VITAL SIGNS STABLE. PATIENT COMPLAINS OF ABDOMINAL PAIN THAT RADIATES TO HER BACK. MEDICATED PER EMAR WITH MILD RELIEF. OSTOMY CONTINUES TO BE NONTPRODUCTIVE, STOMA REMAINS RED.
--- NOTE | 2023-10-01 15:52 | NUR ---
THIS RN COMPLETED CATH CARE FOR 2ND TIME THIS SHIFT. PATIENT DISCUSSES SMALL BUMPS PRESENT ON LABIA AND HOW SHE HAS HAD THESE FOR A WHILE AND HOW THEY INTERMIT DRAIN/BLEED. VERY SMALL AMOUNT OF BLEEDING NOTED WITH WIPING, SAME AMOUNT SEEN YESTERDAY. CONSIDERING PATIENT IS ON HEPARIN GTT, THIS RN TO MONITOR CLOSELY.
--- NOTE | 2023-10-01 18:19 | NUR ---
SHIFT SUMMARY: NO ACUTE CHANGES, SEE PREVIOUS NOTES. VITAL SIGNS REMAIN STABLE. HR 90-130'S DEPENDING ON ACTIVITY. PT/OT IN TO WORK WITH PATIENT UP TO RECLINER AND STANDING AT EDGE OF BED. CARDIZEM GTT AND HEPARIN GTT CONTINUES. D5 CONTINUES TO INFUSE. Q2 TURNING AND NEEDED. DIEZ CATH CONTINUES TO DRAIN. CATH CARE COMPLETED THROUGHOUT SHIFT. NG TUBE CONTINUES TO DRAIN TO LIS. PATIENT CONTINUES TO EAT ICE CHIPS. OSTOMY CONTINUES TO BE NONPRODUCTIVE AT THIS POINT. NO SIGNS OF BLEEDING WITHIN OSTOMY/MIDLINE INCISION. THIS RN CONTINUES TO CHECK BONY AREA/LABIA BUMPS, NO ADDITIONAL BLEEDING (SEE PREVIOUS NOTE). PATIENT DENIES NEEDS AT THIS TIME. CALL LIGHT IN REACH. SCD'S IN PLACE.
[2023-10-02] VITALS (15 sets, daily range): BP systolic 120–151; BP diastolic 60–87
[2023-10-02 03:31] LABS: Hematocrit 29.2 % (33.0-51.0); Hemoglobin 9.2 g/dL (11.5-16.0); Mean Platelet Volume 8.8 fL (9.1-12.4); Platelet Count 307 K/mm3 (150-400)
--- NOTE | 2023-10-02 05:35 | NUR ---
SHIFT SUMMARY PT A&Ox4, CALLS AND COMMUNICATES NEEDS APPROPRIATELY. BP STABLE, AFIB 80-120's, DENIES CP/PRESSURE. CARDIZEM gtt @ 5mls/hr. SpO2> 92% 3L VIA NC, DENIES SOB. NG TUBE REMAINS PATENT AND IN PLACE CONNECTED TO LOW-INTERMITTENT SUCTION WITH BROWN/BILE OUTPUT. DIEZ CATH PATENT, DRAINING TO GRAVITY. PT WITH C/O NAUSEA WITH NO VOMITING, PT ALSO WITH C/O PAIN THROUGHOUT SHIFT MEDICATED PBOTH PER EMAR. MIDLINE DRESSING REMAINS PATENT. OSTOMY PATENT, VERY MINIMAL LIQUID RED/BROWN OUTPUT THIS SHIFT. NO OTHER EVENTS, WILL REPORT TO ONCOMING RN.
--- NOTE | 2023-10-02 14:06 | NUR ---
PT PULLED NG TUBE PT CALLED OUT FOR HELP, WHEN ENTERED ROOM, FOUND PT HOLDING NG TUBE IN PLACE, SECUREMENT DEVICE HAD COME LOOSE FROM NOSE. PT STATED WOKE UP PULLING ON TUBE. READVANCED TUBE AND RESECURED TO NOSE. PT TOLERATED WELL. NOT TAKING ICE CHIPS.
--- NOTE | 2023-10-02 17:22 | NUR ---
SUMMARY CARDIZEM DRIP INCREASED TO 10 MIDDAY. AFIB. HR CONTINUES TO BOUNCE FROM HIGH 90S TO 110S. PT ATTEMPTED TO WORK WITH THERAPY THIS SHIFT BUT HEART RATE INCREASED WITH ACTIVITY. DID NOT GET OUT OF BED. THIS AFTERNOON, WHEN CHANGING DRESSING TO MIDLINE ABD, NOTED THAT OSTOMY APPLIANCE HAD LEAKED. WHEN REMOVED APPLIANCE AND CLEANED, IT WAS NOTED THE OSTOMY APPEARED DRY AND DUSKY. NOTIFIED DR FLORES, NO NEW ORDERS. PHOTOS ON CHART. AFTER APPLIANCE CHANGE AND BED BATH, PT WAS PAINFUL. MEDICATED PER ORDERS FOR PAIN AND PT'S SATS DROPPED TO MID 80S. INCREASED PT'S 02 TO 4L NC. ENCOURAGED PT TO TAKE DEEP BREATHS. PT REPORTED PAIN IMPROVED FOR 6 TO 4. PROVIDED ICE CHIPS PER PT REQUEST. CALL LIGHT IN REACH.
[2023-10-03] VITALS (9 sets, daily range): BP systolic 49–149; BP diastolic 77–93
[2023-10-03 04:49] LABS: Hematocrit 29.6 % (33.0-51.0); Hemoglobin 9.5 g/dL (11.5-16.0); Mean Corpuscular HGB 31.3 pg (26.0-34.0); Mean Corpuscular HGB Conc 32.1 g/dL (31.5-36.5); Mean Corpuscular Volume 97 fL (80-100); Mean Platelet Volume 8.9 fL (9.1-12.4); NRBC ABSOLUTE 0.02 K/mm3 (0.00-0.02); NRBC Auto 0.2 /100 WBC (0.0-0.2); Platelet Count 308 K/mm3 (150-400); RDW Coefficient Variation 13.7 % (11.7-14.2); RDW Standard Deviation 48.5 fL (35.1-46.3); Red Blood Cell Count 3.04 M/mm3 (3.80-5.20); White Blood Cell Count 11.01 K/mm3 (4.00-11.30)
[2023-10-03 05:44] LABS: Bun/Creatinine Ratio 16.7 (12.0-20.0); Creatinine, Blood 1.08 mg/dL (0.40-1.00); Potassium, Blood 3.4 mmol/L (3.5-5.5)
--- NOTE | 2023-10-03 06:12 | NUR ---
SHIFT SUMMARY PATIENT ALERT AND ORIENTED x4, DROWSY BUT WILL WAKE TO VERBAL STIMULI. BP STABLE, TELE READING AFIB 100-110s, CARDIZEM GTT INFUSING, SEE FLOWSHEET. ON 2L O2 WITH SPO2 >92%. NGT IN PLACE TO LIS, SIGNIFICANT DARK BROWN BILOUS LIQUID OUT IN SUCTION CANISTER. STOMA IS DARK IN COLOR, VERY DRY APPEARANCE, WITH NO OUTPUT THIS SHIFT, BOWEL TONES HYPOACTIVE. DIEZ IN PLACE DRAINING DARK YELLOW URINE TO GRAVITY. MEDICATED PER EMAR FOR PAIN, NAUSEA AND ANXIETY. NO OTHER CHANGES, WILL REPORT TO DAY SHIFT RN.
--- NOTE | 2023-10-03 09:51 | NUR ---
CARE ASSUMPTION PT A&OX4. SP02>90% ON 2L NC. TELEMETRY SHOWS AFIB, HR 100'S, VSS. DIEZ CATHETER DRAINING DARK YELLOW URINE TO GRAVITY. PT HAS NEW OSTOMY THIS STAY, FLAT, DARK AROUND EDGES, SEE PICS IN CHART. NG TO LIS, DARK BROWN OUTPUT. MD LLOYD IN ROOM THIS AM TO ASSESS. MD LLOYD DETACHED TUBE TO NG TO ASSESS CONTENTS. STATES POSSIBLE GI BLEED. ORDERED PROTONIX BID, 40 MG. CALL PLACED TO MD SORIA. MD SORIA W/ ORDERS TO DC HEPARIN GTT, INCREASE PROTONIX TO 80 MG BID. POTASSIUM INFUSING PER EMAR. CARDIZEM INFUSING AT 5. PT REFUSING REPOSITIONING CURRENTLY. CALL LIGHT IN REACH.
[2023-10-03 15:41] LABS: BASOPHILS ABSOLUTE AUTO 0.02 K/mm3 (0.00-0.23); BASOPHILS PERCENT AUTO 0 % (0-2); EOSINOPHILS ABSOLUTE AUTO 0.11 K/mm3 (0.00-0.68); EOSINOPHILS PERCENT AUTO 1 % (0-6); Hematocrit 30.9 % (33.0-51.0); Hemoglobin 9.9 g/dL (11.5-16.0); IMMATURE GRAN PERCENT AUTO 2 % (0-1); LYMPHOCYTES ABSOLUTE AUTO 1.23 K/mm3 (0.84-5.20); LYMPHOCYTES PERCENT AUTO 12 % (21-46); MONOCYTES ABSOLUTE AUTO 1.09 K/mm3 (0.16-1.47); MONOCYTES PERCENT AUTO 10 % (4-13); Mean Corpuscular HGB 30.7 pg (26.0-34.0); Mean Corpuscular Volume 96 fL (80-100); Mean Platelet Volume 9.1 fL (9.1-12.4); NEUTROPHILS ABSOLUTE AUTO 7.92 K/mm3 (1.96-9.15); NEUTROPHILS PERCENT AUTO 75 % (41-73); Platelet Count 333 K/mm3 (150-400); RDW Coefficient Variation 13.5 % (11.7-14.2); RDW Standard Deviation 47.8 fL (35.1-46.3); Red Blood Cell Count 3.22 M/mm3 (3.80-5.20); White Blood Cell Count 10.57 K/mm3 (4.00-11.30)
--- NOTE | 2023-10-03 17:15 | NUR ---
shift summary no acute changes since care assumption. ostomy passing gas x2 this afternoon. reglan given x2 for nausea. ng tube w/ 700 dark brown liquid out this shift. campo catheter w/ dark yamilet urine at start of shift. currently clear yellow. Abx infused. fluids dc'd and lasix given per emar. cardizem infusing at 5. hr 100's. call light in reach.
[2023-10-04] VITALS (7 sets, daily range): BP systolic 135–161; BP diastolic 78–95
[2023-10-04 04:47] LABS: Hematocrit 32.2 % (33.0-51.0); Hemoglobin 10.2 g/dL (11.5-16.0); Mean Corpuscular HGB 30.4 pg (26.0-34.0); Mean Corpuscular HGB Conc 31.7 g/dL (31.5-36.5); Mean Corpuscular Volume 96 fL (80-100); NRBC ABSOLUTE 0.02 K/mm3 (0.00-0.02); NRBC Auto 0.2 /100 WBC (0.0-0.2); Platelet Count 338 K/mm3 (150-400); RDW Coefficient Variation 13.6 % (11.7-14.2); RDW Standard Deviation 47.9 fL (35.1-46.3); Red Blood Cell Count 3.35 M/mm3 (3.80-5.20); White Blood Cell Count 10.08 K/mm3 (4.00-11.30)
[2023-10-04 05:15] LABS: Bun/Creatinine Ratio 16.5 (12.0-20.0); Calcium, Blood 8.2 mg/dL (8.5-10.1); Creatinine, Blood 1.03 mg/dL (0.40-1.00); Potassium, Blood 3.9 mmol/L (3.5-5.5)
--- NOTE | 2023-10-04 06:10 | NUR ---
SHIFT SUMMARY PATIENT ALERT AND ORIENTED x4, SOFT SPOKEN AND FLAT AFFECT. BP STABLE, TELE READING AFIB 100-120s DURING THE NIGHT, CARDIZEM GTT INFUSING PER EMAR, SEE FLOWSHEET FOR TITIRATIONS. PATIENT ON 2L NC WITH SPO2 >92%, DESATS WHILE SLEEPING. NGT TO LIS WITH CLEAR BILIOUS LIQUID OUT DURING THE NIGHT, NO SIGNS OF COFFEE GROUND LIQUID IN TUBE/CANISTER. OSTOMY BURPED DURING THE NIGHT D/T GAS, NO OUTPUT NOTED. DIEZ IN PLACE DRAINING YELLOW URINE TO GRAVITY. PATIENT ASSISTING STAFF WITH TURNS. NO OTHER SIGNIFICANT CHANGES DURING THE NIGHT, WILL REPORT TO DAY SHIFT RN.
--- NOTE | 2023-10-04 07:30 | NUR ---
ASSUMED CARE: PT RESTING IN BED, STATES SHE FEELS UNCOMFORTABLE EVEN AFTER REPOSITIONING. STATES HER BACK HURTS. AFIB ON TELE IN LOW 100S-120S. CARDIZEM GTT AT 5MG/HR. NG TO LIS DRAINING YELLOW/GREEN. DR SILVERMAN CAME TO BEDSIDE AND INSTRUCTED TO CLAMP NG FOR 6 HOURS TO SEE HOW PT TOLERATES. PT AWARE TO TELL STAFF IF SHE HAS ANY NAUSEA SO THAT SX CAN BE RESTARTED. PT REPORTS GAS FROM STOMA. STOMA PINK WITH DARKENED SKIN AROUND EDGES. DIEZ CATH IN PLACE DRAINING CLEAR YELLOW. MEDICATED FOR PAIN AND NAUSEA. NO ACUTE NEEDS AT THIS TIME.
--- NOTE | 2023-10-04 08:59 | NUR ---
HEPARIN ORDERS: DR SORIA AWARE THAT DR SILVERMAN CAME TO SEE PT AND CLAMPED NG TUBE. PT DOES NOT C/O NAUSEA AT THIS TIME. DR SORIA STATES NO HEPARIN AT THIS TIME AND WISHES FOR GI WOUND TO HEAL FURTHER BEFORE RESUMING ANTICOAGULATION
--- NOTE | 2023-10-04 11:03 | NUR ---
STOMA SITE REMAINS UNCHANGED SINCE ASSESSMENT WITH DR SILVERMAN WITH SKIN PINK AND DARKENED EDGES. PT'S OG REMAINS CLAMPED WITH NO C/O NAUSEA
--- NOTE | 2023-10-04 13:36 | NUR ---
CALL TO DR SILVERMAN TO RELAY THAT PT HAS HAD NG CLAMPED FOR 6 HOURS AND HAS NOT C/O ANY NAUSEA. STOMA APPEARANCE REMAINS THE SAME THIS AM. STATES TO PUT NG TO SUCTION FOR 15 MINUTES TO DETERMINE HOW MUCH OUTPUT HAS REMAINED. IF GREATER THAN 200 MLS, CLAMP AGAIN BUT LET PT EAT CLEAR LIQUIDS TO SEE HOW SHE TOLERATES. IF LESS THAN 200MLS NG CAN BE REMOVED.
--- NOTE | 2023-10-04 14:09 | NUR ---
AFTER 15 MINUTES OF SUCTION, PT ONLY HAD 100CC OF YELLOW DRAINAGE FROM NG TUBE. NG REMOVED PER INSTRUCTIONS OF DR SILVERMAN. PT NOW CLEAR LIQUIDS. INSTRUCTED TO TAKE HER TIME AND TO NOT DRINK TOO MUCH TOO QUICKLY. MOLD CAPPER AWARE WELL.
--- NOTE | 2023-10-04 17:41 | NUR ---
SHIFT SUMMARY: PT'S NG TUBE WAS REMOVED TODAY AND PT HAS BEEN TOLERATING CLEAR LIQUID DIET WITH NO NAUSEA. OSTOMY DRAINING BROWNISH PINK LIQUID, SMALL AMOUNT. 2L O2 VIA NC. 5MG/HR OF CARDIZEM GTT DUE TO AFIB AT 113. NO ACUTE NEEDS AT THIS TIME.
[2023-10-05] VITALS (14 sets, daily range): BP systolic 88–169; BP diastolic 53–117
--- NOTE | 2023-10-05 05:46 | NUR ---
5615 THIS RN IN ROOM, PATIENT STATING SHE IS VERY ANXIOUS. PATIENT STATING "I JUST WANT TO GET UP AND SCREAM", PATIENT ALSO REPORTING SOME RESTLESSNESS. THIS RN OFFERED TO ASSIST PATIENT TO RECLINER IN HOPES TO EASE ANXIETY. PATIENT WAS ABLE TO STAND PIVOT TO RECLINER. CARDIZEN GTT TITRATED D/T PATIENT HR TOUCHING 150 WHILE MOVING. PATIENT ONLY TOLERATED RECLINER FOR ABOUT 15 MINUTES AMD BECAUSE NAUSEOUS AND REQUESTING TO RETURN TO BED. THIS RN REMAINED AT BEDSIDE, MEDICATED WITH PRN ANTIEMETIC. PATIENT TRANSFERRED BACK TO BED WITH ASSISTANCE. PATIENT RESTING COMFORTABLY. CALL LIGHT IN REACH.
[2023-10-05 06:11] LABS: Hematocrit 34.9 % (33.0-51.0); Hemoglobin 11.2 g/dL (11.5-16.0)
[2023-10-05 06:27] LABS: Bun/Creatinine Ratio 19.6 (12.0-20.0); Calcium, Blood 8.3 mg/dL (8.5-10.1); Creatinine, Blood 0.97 mg/dL (0.40-1.00); Potassium, Blood 3.4 mmol/L (3.5-5.5)
--- NOTE | 2023-10-05 06:30 | NUR ---
SHIFT SUMMARY PATIENT ALERT AND ORIENTED x4, ABLE TO MAKE NEEDS KNOWN TO STAFF. BP STABLE, TELE READING AFIB 100-120s UP TO 150 WITH EXERTION. CARDIZEM GTT INFUSING, SEE FLOWSHEET. NAUSEOUS DURING THE NIGHT, MEDICATED PER EMAR. OSTOMY WITH MINIMAL AMOUNT OF BROWN/BILIOUS LIQUID OUT, PATIENT REPORTING GAS. DIEZ IN PLACE DRAINING DARK YELLOW URINE TO GRAVITY. PATIENT ANXIOUS AT TIMES AND CAN BECOME TEARFUL, PATIENT STATING TO THIS RN THAT SHE DOESN'T FEEL LIKE SHES MAKING ANY PROGRESS. THIS RN REASSURING PATIENT. SEE PREVIOUS NOTE FOR OTHER CHANGES. WILL REPORT TO DAY SHIFT RN.
--- NOTE | 2023-10-05 08:00 | NUR ---
INITIAL ASSESSMENT: Patient is awake sitting up in bed eating breakfast. She is alert and oriented x4. She reports feeling, "a little down today." I talked with the patient about trying some of her oral medications, her celexa being one of them. She reports 8/10 abd pressure, she is medicated with Dilaudid. She reports no nausea but is belching this morning. She is in A-Fib 100-115, Cardizem gtt infusing at 10mg/hr, I will give her po medications and titrate her off the Cardizem if possible. LS DIM in the bases, biox is high 90s on 2l via NC, titrated down to 1L. BT hypoactive, she has a midline incision with medipore dressings-CDI. Ostomy to the LLQ secure and draining dark green liquid stool. Stoma looks pink and small. PPP. VSS. Pt is able to swallow pills whole 1 at a time with a sip of water. Patient denies other needs at this time. Call light in reach.
--- NOTE | 2023-10-05 12:35 | NUR ---
UPDATE: Patient has been tolerating being OOB to the chair very well. She is able to eat half of her jello supplement and all of her grape juice. She is C/O "cramping" in her ostomy. She is having some loose stool passing. The patient is medicated with Dilaudid and then wanted to go back to bed. She became dizzy standing, I asked her to sit back down and her blood pressure had dropped. After lying down for about 5 min her blood pressure came back up and she stated she was feeling better. The patient agreed she would sit up for a little bit longer and then try and go back to bed. She has been able to be off the cardizem gtt and her heart rate has been down into the 80s and 90s this afternoon. Daughter is at bedside. She denies other needs at this time.
--- NOTE | 2023-10-05 12:45 | NUR ---
FALL: Patient was getting back to bed from the chair. Initially I had given the paient Diluadid for pain-she was C/O cramping around her stoma. We had tried to get back to bed and upon standing she was C/O dizziness. She sat back down and her blood pressure was quite a bit lower than it has been. She rested for about 30 min. She attempted again to get out of the chair and back to bed upon turning toawrd the bed she lost the strength in her legs and was lowered to the ground. Staff was able to get her back to bed with a 4 person assist, a gait belt and a FWW. She felt better once she was back in bed. Daughter at bedside for the incident and Dr. Venegas notified-no injuries noted. VSS.
--- NOTE | 2023-10-05 17:09 | NUR ---
SUMMARY: Patient has been alert and oriented T/O the shift. She has had some weakness today and fell getting out of the recliner and back to the bed, no injuries as she was assisted to the floor with a staff member. She has been medicated with Dilaudid twice this shift for some abd pressure and cramping at the ostomy site. HR has been great, she was able to tolerate her home rate control medications and was titrated off the Cardizem gtt this shift-her heart rate has been in the 70s to 80s this afternoon. LS DIM in the bases, biox has been mid 90s on 1L via NC. I attempted to titrate her down to RA, her staurations dropped down into the mid 80s. BT hypoactive at the start of the shift and increased to active as the shift progressed. This morning she was putting out liquid green stool and this afternoon she started to put out more solid dark borwn stool. PPP. VSS. She was up in the recliner for a couple of hours today. No acute changes this shift. Will report to oncoming RN.
[2023-10-06 03:58] VITALS: BP 114/72
[2023-10-06 06:03] LABS: International Normalized Ratio 1.17; Prothrombin Time Results 12.2 Sec (9.7-11.5)
--- NOTE | 2023-10-06 06:09 | NUR ---
SHIFT SUMMARY PATIENT ALERT AND ORIENTED x4, SOFT SPOKEN. BP STABLE, TELE READING AFIB 80-90s DURING THE NIGHT, PATIENT ON 2L NC WITH SPO2 >90%, DESATS WHEN SLEEPING AT TIMES. OSTOMY IN PLACE WITH BROWN/GREEN BILOUS LIQUID AND GAS, PATIENT ALSO BELCHING AFTER MOVEMENT. DIEZ IN PLACE DRAINING YELLOW URINE TO GRAVITY. NO OTHER CHANGES THIS SHIFT, WILL REPORT TO DAY SHIFT RN.
[2023-10-06 06:47] LABS: Albumin, Blood 1.8 g/dL (3.4-5.0); Anion Gap 5 mmol/L (6-16); Blood Urea Nitrogen 20 mg/dL (8-24); CO2, Blood 36 mmol/L (21-32); Calcium, Blood 8.2 mg/dL (8.5-10.1); Chloride, Blood 98 mmol/L (98-108); Creatinine, Blood 1.11 mg/dL (0.40-1.00); Glomerular Filtration Rate 52 (60-); Glucose, Blood 92 mg/dL (70-99); Phosphorus, Blood 2.3 mg/dL (2.5-4.9); Potassium, Blood 3.3 mmol/L (3.5-5.5); Sodium, Blood 139 mmol/L (136-145)
[2023-10-06 08:38] VITALS: BP 111/67
--- NOTE | 2023-10-06 08:41 | NUR ---
NURSING PCU DAYSHIFT: Assumed care of pt at approx 0700. A/O, pleasant, cooperative w/care. Mildly anxiuos this a.m. and indicates sadness regarding current medical condition. General weakness, requires assistance w/transferring and repositioning. Skin fragile/pale, scattered bruising t/o, redness to folds. Tele in place, afib w/HR 90-110, no c/o CP/pressure, SBP 111 prior to a.m. meds, no noted edema. L/S dim, fine bibasilar crackles, O2 sat upper 90's on 2L NC, respirations shallow, continuous O2 monitoring, occ ENVIRONMENTAL LABORATORY TECHNICIAN cough. Abd tender, new ostomy in place to L abd, draining semi-solid brown\green stool. FC w/stat lock in place draining w/o difficulty. PG to ARIE, s/l. No s/s of acute distress this a.m. Discussed plan of care w/pt. Administered nausea and pain medications along w/scheduled meds, tolerated well. Educated importance of deep breathing exercises. Denies any current questions/needs. Call light in reach, cont to monitor for any changes.
--- NOTE | 2023-10-06 15:09 | NUR ---
Pt. is awake sitting in a recliner when she welcomes my visit. Rapport is re-established as we considered matters of lisa and belief. Facilitated a family life review. Pt. displays evidence of trust, engagement and awareness. prayed with Pt. Pt. verbalized gratitude for the spiritual care visit.
--- NOTE | 2023-10-06 15:37 | NUR ---
XFER OF CARE SUMMARY: Pt has done well t/o a.m. Seen by PT/OT, tolerated well, see assessment for full details. Currently OOB in chair. Midline incision dressing changed, ostomy appliance changed. Ostomy continues to put out liquid and formed stool. C/O back discomfort, kpad being set up by PCT. No s/s of acute distress, report given to peer RN to assume care.
[2023-10-06 16:59] VITALS: BP 95/60
--- NOTE | 2023-10-06 17:43 | NUR ---
ASSUMED CARE OF PT AT ABOUT 1545. PT AOX4, PLEASANT, COOPERATIVE WITH CARE. HAS IN CHAIR SINCE ASSUMPTION OF CARE. COMPLAINED OF SOME BACK PAIN THAT HAS BEEN WELL ALLEVIATED WITH PRN PAIN MEDICATIONS THUS FAR. PER REPORT, DIEZ CATHETER SHOULD BE REMOVED TODAY. HAVE NOT THUS FAR HAD OPPURTUNITY TO DO SO BUT HOPEFULLY WILL AFTER PT IS DONE EATING DINNER. CALLS APPROPRIATELY FOR ASSISTANCE. SATTING WELL ON 2 L O2 VIA NC. CHAIR LOCKED. CALL LIGHT LEFT WITHIN REACH.
[2023-10-06 20:26] VITALS: BP 108/78
[2023-10-07] VITALS (11 sets, daily range): BP systolic 83–106; BP diastolic 46–66
--- NOTE | 2023-10-07 04:54 | NUR ---
SHIFT SUMMARY A/OX4, CALLS APPROPRIATELY. SPO2 >92% ON 1L NC. DENIES CHEST PAIN/PRESSURE. MIDLINE ABD DRESSING C/D/I, OSTOMY TO LLQ WITH SMALL AMOUNT OF BROWN OUTPUT. PUREWICK IN PLACE. C/O ABD PAIN, MEDICATED PER EMAR. VSS, NO ACUTE CHANGES AT THIS TIME. BED IN LOWEST POSIITON WITH CALL LIGHT IN REACH. WILL CONTINUE TO MONITOR AND REPORT TO ONCOMING RN.
[2023-10-07 05:37] LABS: Albumin, Blood 1.7 g/dL (3.4-5.0); Anion Gap 5 mmol/L (6-16); Blood Urea Nitrogen 18 mg/dL (8-24); Bun/Creatinine Ratio 15.7 (12.0-20.0); CO2, Blood 35 mmol/L (21-32); Chloride, Blood 99 mmol/L (98-108); Creatinine, Blood 1.15 mg/dL (0.40-1.00); Glomerular Filtration Rate 49 (60-); Glucose, Blood 92 mg/dL (70-99); Phosphorus, Blood 3.2 mg/dL (2.5-4.9); Potassium, Blood 3.7 mmol/L (3.5-5.5); Sodium, Blood 139 mmol/L (136-145)
--- NOTE | 2023-10-07 12:12 | NUR ---
OSTOMY AND MIDLINE DRESSING CHANGEX2 THE PT'S OSTOMY WAS LEAKING AT THE START OF THE SHIFT. I HAD THE CUSTOMER SUPPLY CHAIN ANALYST CHAU ASSIST ME BECAUSE OF THE LOOSE OUTPUT AND CONCAVED STOMA. ABOUT AN HOUR AFTER REDRESSING THE OSTOMY, I WAS ASSESSING THE PT AND NOTED THAT THE STOMA WAS LEAKING AGAIN. I CALLED AYAN, SURGICAL CUSTOMER SUPPLY CHAIN ANALYST, AND HAD HER ASSIST W/ THE DRESSING. SHE HAS SUPPLIES FOR SONCAVED STOMAS. DRESSING IS NOW C/D/I. FREQUENT MONITORING.
--- NOTE | 2023-10-07 16:39 | NUR ---
SHIFT SUMMARY PT IS A&OX4, AND CALLS APPROPRAITELY. SHE WORKED W/ P.T & O.T AND THEY WANT HER TO BE A 2P MOD ASSIST. PT HAS A HX OF A FALL ON 10/05. SHE HAS BEEN UP IN THE CHAIR MOST OF TODAY AND HAS BEEN ABLE TO USE THE BSC INSTEAD OF PURWICK. HER BP HAS BEEN SOFT ALL DAY. I TALKED TO SENIOR OCCUPATIONAL THERAPIST ABOUT MORNING MEDICATIONS AND PAIN MEDICATION AND WAS TOLD TO STILL GIVE THEM. BP STILL SOFT MAP IN THE 60'S. HE HAD HER OSTOMY CHANGED TODAY AND HAD HER MID LINE DRESSING WAS CHANGED AND IS C/D/I. AFTER WORKING WITH PT/OT SHE HAS SOME OOZING FROM WHAT APPEARS TO BE HER INCISION BUT HAS STOPPED. SHE HAS HAD SOME NAUSEA AND WAS MEDICATED ONCE PER EMAR. FIRE IGNITION RISK HAS BEEN ASSESSED AND EDUCATION WAS PROVIDED.
[2023-10-08 03:52] VITALS: BP 98/57
[2023-10-08 04:01] VITALS: BP 106/63
--- NOTE | 2023-10-08 04:36 | NUR ---
SHIFT SUMMARY POD11 EX LAP WITH SIGMOID COLECTOMY AND STOMA CREATION. STOMA APPEARS CONCAVE BUT PINK. MIDLINE MEDIPORE IS C/D/I. OSTOMY APPLIANCE APPEARS INTACT. VSS. PT SLEPT ON AND OFF T/O THE NIGHT. DID NOT REQUIRE ANY PAIN MEDICATION. TOLLERATING PO INTAKE W/O N/V, FULL LIQUID DIET. SCANT FLATTUS AND STOOL NOTED IN OSTOMY BAG. PT VOIDING W/O DIFFICULTY. 2P W/FWW AND GT BELT TO BSC FOR SAFETY D/T KNEE'S BUCKLING IN THE PAST, THIS DID NOT OCCUR T/O THE NIGHT. NO ACUTE EVENTS NOTED. PLAN TO D/C TO SNF WHEN MEDICALLY CLEARED.
[2023-10-08 07:59] VITALS: BP 109/66
--- NOTE | 2023-10-08 14:23 | NUR ---
PT ARRIVED TO UNIT VIA WHEELCHAIR. STOMA PINK AND BEEFY, SMALL AMOUNT LIQUID BROWN STOOL IN BAG. CHANGED YESTERDAY. PT DENIES PAIN AT THIS TIME. CALL LIGHT PROVIDED. PT SITTING UP IN CHAIR.
--- NOTE | 2023-10-08 14:30 | NUR ---
MORNING SUMMARY IN PCU 08 PT HAS HAD AN UNEVENTFUL DAY. NO COMPLAINTS OF N/V, PAIN HAS BEEN CONTROLLED W/O ANY PAIN MEDICATIONS, AND THE PT HAS BEEN UP IN THE CHAIR. MIDLINE DRESSING IS C/D/I AND OSTOMY HAD HAD MINIMAL FLATTUS/OUTPUT. WHILE ASLEEP THE PT IS ON 1-2L NC, BUT WHEN AWAKE SHE IS ON RA. SHE DESATURATES TO LOW 80'S WHEN ASLEEP. PT BROUGHT TO 227 AND REPORT WAS GIVEN TO AYAZ Diaz RN.
[2023-10-08 14:37] VITALS: BP 92/52
--- NOTE | 2023-10-08 16:25 | NUR ---
NO ACUTE CHANGES SINCE ARRIVAL TO UNIT, PT HAS BEEN SITTING UP IN HER CHAIR. DENIES PAIN. PT CALLS APPROPRIATLY. TWO PERSON TRANSFER TO [facility] [place]. OSTOMY REMAINS PINK AND BEEFY, NO STOOL IN BAG. NO FLATUS NOTED.
--- NOTE | 2023-10-08 17:49 | NUR ---
Pt. is awake and sitting up in a chair eating dinner when she welcomes my visit. Rapport is quickly re-established as we have met on serveral occassions in the hospital. Pt. is unsettled about how she needs to eat , but verbalizes her mouth is raw from days of ice chips. Pt. is pleasant and welcomed prayer. Prayed with Pt. Pt. verbalized gratitude for the spiritual care visit and welcomed this performance specialist to return.
[2023-10-08 21:16] VITALS: BP 98/66
[2023-10-09 03:45] VITALS: BP 105/64
--- NOTE | 2023-10-09 06:11 | NUR ---
SHIFT SUMMARY PT IS POD#12 FOR SEVERE SEPSIS SECONDARY TO PERFORATED DIVERTICULITIS S/P EXPLORATORY LAPAROTOMY W/TAMRA, SIGMOID COLECTOMY, AND COLOSTOMY. PT IS A&O AND CALLS APPROPRIATELY FOR STAFF ASSISTANCE. PT IS A 1-2 PERSON ASSIST TO THE BEDSIDE COMMODE WITH A FWW AND A GAIT BELT AND SHE HAS BEEN VERY STABLE THROUGHOUT THIS SHIFT. NO ACUTE EVENTS OVERNIGHT. PT HAS RESTED COMFORTABLY THIS SHIFT W/NO COMPLAINTS. BED IS IN LOWEST POSITION, CALL LIGHT IS WITHIN REACH.
[2023-10-09 07:14] VITALS: BP 122/67
--- NOTE | 2023-10-09 11:37 | NUR ---
OSTOMY CHANGE OSTOMY APPLIANCE REMOVED FOR CHANGE, NOTED SEPARATION IN STOMA AND SKIN TO THE RIGHT SIDE OF STOMA. UPDATED PICTURES AND PHONE CALL TO DR. FLORES DONE. NO NEW ORDERS. OWNER OPERATOR CALLED TO ASSIST IN DRESSING CHANGE. AYAZ VERAS ASSISTING THIS RN IN DOCUMENTING AND PLAN OF CARE.
[2023-10-09 15:22] VITALS: BP 105/67
--- NOTE | 2023-10-09 18:32 | NUR ---
SHIFT SUMMARY PATIENT IS POD12 EX LAP. MIDLINE INCISION WITH MEDIPORE DRESSING CHANGED TODAY AND C/D/I. OSTOMY APPLIANCE IS CHANGED AND WOUND CARE CONSULT IN PLACE. NEW PICTURES TAKEN AND IN CHART. SEE PREVIOUS NOTE AND PICS. PATIENT TOLERATES PO INTAKE, PRODUCING FORMED STOOLS AND GAS IN BAG. VOIDING USING BSC AND 1 SBA, GB,FWW. VSS. CALL LIGHT IS IN REACH.
[2023-10-09 20:34] VITALS: BP 109/56
[2023-10-10 03:46] VITALS: BP 113/56
--- NOTE | 2023-10-10 04:14 | NUR ---
SHIFT SUMMARY NO ACUTE CHANGES TO REPORT OVERNIGHT. OSTOMY SITE MANAGED AND CHANGED BY ANN-MARIE SPRAY TECHNICIAN, AND HAS STAYED SECURED T/O THE NIGHT, C/D/I. NO OUTPUT FROM OSTOMY THIS SHIFT. PT REPORTS FEELING GAS MOVING. BOWEL TONES WERE HYPOACTIVE WITH AUSCULATION. PT DENIES PAIN. PT DOES REPORT SOME NAUSEA THIS SHIFT, MEDICATED PER EMAR. PT HAS BEEN UP AND AMBULATING TO THE BATHROOM. HX GEE, O2 IN PLACE AT NOC WHILE SLEEPING. ERNESTO BIOX IN PLACE, SATS WNL. PLAN OF CARE REMAINS UNCHANGED.
[2023-10-10 07:32] VITALS: BP 114/65
[2023-10-10 16:02] VITALS: BP 83/55
--- NOTE | 2023-10-10 16:50 | NUR ---
summary PT A&OX4. REPORTED FEELING DEPRESSED AND WORRIED ABOUT OSTOMY THIS AM. ADMINISTERED ANTIDEPRESSANT PER ORDERS W/MORNING MEDS. THIS AFTERNOON, PT REPORTED PAIN/PRESSURE IN ABDOMEN WITH SOME NAUSEA. MEDICATED PER ORDERS W/PERCOCET AND ZOFRAN. PT REPORTED NAUSEA IMPROVED AND PAIN DROPPED FROM 7/10 TO 3/10. NO OUTPUT NOTED YET THIS SHIFT FROM OSTOMY. PT HYPOTENSIVE WITH AFTERNOON VS. ASYMPTOMATIC. NOTIFIED DR POST AND ORDERS OBTAINED FOR 1L NS TO RUN AT 100 ML/HR. CALL LIGHT IN REACH.
[2023-10-10 18:26] VITALS: BP 113/62
[2023-10-10 20:00] VITALS: BP 96/59
[2023-10-11 02:57] VITALS: BP 102/57
[2023-10-11 07:16] LABS: Hematocrit 27.7 % (33.0-51.0); Hemoglobin 8.9 g/dL (11.5-16.0); Mean Corpuscular HGB 30.9 pg (26.0-34.0); Mean Corpuscular HGB Conc 32.1 g/dL (31.5-36.5); Mean Corpuscular Volume 96 fL (80-100); Mean Platelet Volume 9.3 fL (9.1-12.4); Platelet Count 463 K/mm3 (150-400); RDW Coefficient Variation 13.9 % (11.7-14.2); RDW Standard Deviation 49.2 fL (35.1-46.3); Red Blood Cell Count 2.88 M/mm3 (3.80-5.20); White Blood Cell Count 10.19 K/mm3 (4.00-11.30)
[2023-10-11 07:33] LABS: Bun/Creatinine Ratio 12.2 (12.0-20.0); Creatinine, Blood 1.15 mg/dL (0.40-1.00); Potassium, Blood 3.9 mmol/L (3.5-5.5)
[2023-10-11 07:59] VITALS: BP 104/54
--- NOTE | 2023-10-11 08:11 | NUR ---
SUMMARY PT WITH LARGE FORM PASTY DRY STOOL TO OSTOMY APPLIANCE TONIGHT AND LIQUID STOOL TRAVELING BENEATH WAFER AROUNF FORMED STOOL. CHANGED INC DRESSINGS, OSTOMY APPLIANCE. MED X 1 PO FOR PAIN TONIGHT PT REPORTED ADEQUATE PAIN CONTROL.
[2023-10-11 10:05] VITALS: BP 99/58
[2023-10-11 15:22] VITALS: BP 104/74
--- NOTE | 2023-10-11 16:34 | NUR ---
DR VILLEGAS IN TO SEE PT.
--- NOTE | 2023-10-11 17:00 | NUR ---
SUMMARY NO ACUTE CHANGES T/O SHIFT. PT MEDICATED THIS AM FOR NAUSEA. REPORTED IMPROVEMENT WAS ABLE TO EAT. NO SIGNIFICANT OUTPUT FROM OSTOMY. MEDICATED PER ORDERS THIS AFTERNOON FOR 7/10 PAIN WHICH IMPROVED SO PT WAS ABLE TO NAP. SAT UP IN CHAIR T/O AFTERNOON. DRESSING CHANGED TO INFERIOR END OF INCISION THIS AFTERNOON. CALL LIGHT IN REACH.
[2023-10-11 19:18] VITALS: BP 113/60
--- NOTE | 2023-10-12 07:57 | NUR ---
SUMMARY PT WITH LARGE VOLUME STOOL PER OSTOMY RUNNING UNDER APPLIANCE AND TO INC,CLEAR DRESSING OVER INC AFTER CLEANING TO PREVENT CONTAMINATION BY STOOL AND REPLACED APPLIANCE AFTER WOUND CARE.TAUGHT PT CHANGING AND PROVIDING CARE. PT INTERESTED AND ATTNETIVE TO TEACHING.
[2023-10-12 08:01] LABS: BASOPHILS ABSOLUTE AUTO 0.05 K/mm3 (0.00-0.23); BASOPHILS PERCENT AUTO 1 % (0-2); EOSINOPHILS ABSOLUTE AUTO 0.14 K/mm3 (0.00-0.68); EOSINOPHILS PERCENT AUTO 2 % (0-6); Hematocrit 28.5 % (33.0-51.0); Hemoglobin 8.8 g/dL (11.5-16.0); IMMATURE GRAN ABSOLUTE AUTO 0.05 K/mm3 (0.00-0.10); IMMATURE GRAN PERCENT AUTO 1 % (0-1); LYMPHOCYTES ABSOLUTE AUTO 1.69 K/mm3 (0.84-5.20); LYMPHOCYTES PERCENT AUTO 21 % (21-46); MONOCYTES PERCENT AUTO 14 % (4-13); Mean Corpuscular HGB Conc 30.9 g/dL (31.5-36.5); Mean Corpuscular Volume 97 fL (80-100); NEUTROPHILS ABSOLUTE AUTO 5.14 K/mm3 (1.96-9.15); NEUTROPHILS PERCENT AUTO 63 % (41-73); Platelet Count 472 K/mm3 (150-400); RDW Standard Deviation 49.5 fL (35.1-46.3); Red Blood Cell Count 2.93 M/mm3 (3.80-5.20); White Blood Cell Count 8.17 K/mm3 (4.00-11.30)
[2023-10-12 08:08] LABS: Bun/Creatinine Ratio 12.1 (12.0-20.0); Calcium, Blood 8.2 mg/dL (8.5-10.1); Creatinine, Blood 1.16 mg/dL (0.40-1.00)
[2023-10-12 08:37] VITALS: BP 116/59
[2023-10-12 11:18] LABS: Stool Occult Blood Guaiac 1 Neg (Neg)
[2023-10-12 14:33] VITALS: BP 115/58
--- NOTE | 2023-10-12 17:41 | NUR ---
DISCHARGE SUMMARY POD 15 SIG COLECTOMY WITH NEW OSTOMY, A/OX4, VSS, TOLERATING PO, VOIDING WELL, OSTOMY HAS GOOD OUTPUT, PAIN MANAGED, ABLE TO STAND PIVOT AND WALK SHORT DISTANCES WITH FWW AND 1 PERSON SBA, REMOVED MOST OF THE XAVIER BUT THERE WAS A SMALL SPOT THAT STARTED TO DEHISCE WHICH WAS ALSO REINFORCED WITH STERI STRIPS AND SURGEON NOTIFIED OF THIS, NEW APPLIANCE PLACED JUST PRIOR TO DISCHARGE. CALL TO [facility] TO GIVE REPORT. PT TAKEN VIA ARRANGED TRANSPORT.
== END 2023-10-12 15:45 | DRG 853 ==
LOC: ER 07:09 → PCU 11:28 → SURS 11:28 → PCU 09-27 18:22 → SURS 10-08 14:22
PROVIDERS: Emergency Medicine; Family Medicine; Internal Medicine; Surgery; ADMIT Internal Medicine
PROC: 3E03329 Introduction of Other Anti-infective into Peripheral Vein, Percutaneous Approach (ICD-10-PCS; 2023-09-24)
PROC: 0DTN0ZZ Resection of Sigmoid Colon, Open Approach (ICD-10-PCS; principal; 2023-09-27 14:45)
PROC: 0D1M0Z4 Bypass Descending Colon to Cutaneous, Open Approach (ICD-10-PCS; 2023-09-27 14:45)
DX: A41.9 Sepsis, unspecified organism (principal); J96.01 Acute respiratory failure with hypoxia; K57.20 Diverticulitis of large intestine with perforation and abscess without bleeding; N17.9 Acute kidney failure, unspecified; I48.20 Chronic atrial fibrillation, unspecified; E87.0 Hyperosmolality and hypernatremia; K56.699 Other intestinal obstruction unspecified as to partial versus complete obstruction; Z68.41 Body mass index [BMI] 40.0-44.9, adult; Z66 Do not resuscitate; N18.30 Chronic kidney disease, stage 3 unspecified; I12.9 Hypertensive chronic kidney disease with stage 1 through stage 4 chronic kidney disease, or unspecified chronic kidney disease; G47.33 Obstructive sleep apnea (adult) (pediatric); R79.1 Abnormal coagulation profile; G47.00 Insomnia, unspecified; E66.01 Morbid (severe) obesity due to excess calories; F32.A Depression, unspecified; R65.20 Severe sepsis without septic shock; D63.1 Anemia in chronic kidney disease; N73.9 Female pelvic inflammatory disease, unspecified; F41.9 Anxiety disorder, unspecified; Z96.641 Presence of right artificial hip joint; Z79.01 Long term (current) use of anticoagulants; Z88.0 Allergy status to penicillin; Z88.1 Allergy status to other antibiotic agents; Z88.2 Allergy status to sulfonamides; Z88.6 Allergy status to analgesic agent; Z88.8 Allergy status to other drugs, medicaments and biological substances; Z87.891 Personal history of nicotine dependence
CPT/HCPCS: 36415; 36430; 51702; 71045; 74177; 80048; 80053; 80069; 80162; 81001; 82272; 83605; 83690; 84295; 85014; 85018; 85025; 85027; 85049; 85520; 85610; 85730; 86900; 86901; 87040; 87086; 88307; 93005; 93010; 94760; 94762; 96365-59; 96375; 96376; 97110; 97162; 97166; 97530; 97535; 99285-25; A9270; C9113; J0330; J1160; J1170; J1644; J1940; J2060; J2185; J2250; J2270; J2371; J2405; J2704; J2765; J3010; J3480; J7030; J7050; J7060; J7070; P9059; Q9967

== ENCOUNTER 2023-10-17 10:18 | Emergency (ER) | payer MEDICARE, BC ==
[~2023-10-17] VITALS: Ht 167.6 cm; Wt 114.8 kg
[~2023-10-17 10:18] MED LIST changes: +CENTRUM SILVER1 EAC2 PO; +METF500 PO
[2023-10-17 11:26] LABS: BASOPHILS ABSOLUTE AUTO 0.04 K/mm3 (0.00-0.23); BASOPHILS PERCENT AUTO 1 % (0-2); EOSINOPHILS ABSOLUTE AUTO 0.12 K/mm3 (0.00-0.68); EOSINOPHILS PERCENT AUTO 2 % (0-6); Hematocrit 28.4 % (33.0-51.0); Hemoglobin 8.9 g/dL (11.5-16.0); IMMATURE GRAN ABSOLUTE AUTO 0.02 K/mm3 (0.00-0.10); IMMATURE GRAN PERCENT AUTO 0 % (0-1); LYMPHOCYTES ABSOLUTE AUTO 1.36 K/mm3 (0.84-5.20); LYMPHOCYTES PERCENT AUTO 17 % (21-46); MONOCYTES ABSOLUTE AUTO 1.07 K/mm3 (0.16-1.47); MONOCYTES PERCENT AUTO 13 % (4-13); Mean Corpuscular HGB 29.9 pg (26.0-34.0); Mean Corpuscular HGB Conc 31.3 g/dL (31.5-36.5); Mean Corpuscular Volume 95 fL (80-100); Mean Platelet Volume 8.9 fL (9.1-12.4); NEUTROPHILS ABSOLUTE AUTO 5.46 K/mm3 (1.96-9.15); NEUTROPHILS PERCENT AUTO 68 % (41-73); Platelet Count 412 K/mm3 (150-400); RDW Coefficient Variation 14.5 % (11.7-14.2); RDW Standard Deviation 49.4 fL (35.1-46.3); Red Blood Cell Count 2.98 M/mm3 (3.80-5.20); White Blood Cell Count 8.07 K/mm3 (4.00-11.30)
[2023-10-17 11:29] LABS: Albumin/Globulin Ratio 0.5 (0.8-1.8); Bilirubin, Total 0.4 mg/dL (0.1-1.0); Bun/Creatinine Ratio 13.6 (12.0-20.0); C-REACTIVE PROTEIN, EXT RANGE 5.95 mg/dL (0.000-0.300); Calcium, Blood 8.2 mg/dL (8.5-10.1); Creatinine, Blood 1.25 mg/dL (0.40-1.00); Globulin, Blood 4.2 g/dL (2.2-4.0); Magnesium, Blood 1.5 mg/dL (1.6-2.4); Potassium, Blood 3.8 mmol/L (3.5-5.5); Total Protein, Blood 6.2 g/dL (6.4-8.2)
[2023-10-17] MEDS ORDERED: AMOCLA875 PO ×2 (13:25→13:27)
[2023-10-17 15:02] VITALS: BP 131/99
== END 2023-10-17 16:02 | disposition home or self-care (01) ==
LOC: ER 10:18
PROVIDERS: Student in an Organized Health Care Education/Training Program
DX: T81.49XA Infection following a procedure, other surgical site, initial encounter (principal); T81.31XA Disruption of external operation (surgical) wound, not elsewhere classified, initial encounter; K52.9 Noninfective gastroenteritis and colitis, unspecified; I48.91 Unspecified atrial fibrillation; Z93.3 Colostomy status; Z90.49 Acquired absence of other specified parts of digestive tract; Z88.1 Allergy status to other antibiotic agents; Z88.0 Allergy status to penicillin; Z88.8 Allergy status to other drugs, medicaments and biological substances; Z88.6 Allergy status to analgesic agent; Z79.899 Other long term (current) drug therapy; Z79.84 Long term (current) use of oral hypoglycemic drugs
CPT/HCPCS: 36415; 74177; 80053; 83690; 83735; 85025; 85651; 86140; 93005; 93010; 99284-25; A9270; Q9967

== ENCOUNTER 2023-12-16 03:14 | Inpatient (IN) | payer MEDICARE, BC ==
[~2023-12-16] VITALS: Ht 167.6 cm; Wt 103.0 kg
[~2023-12-16 03:14] MED LIST changes: +AMOCLA875 PO; +CELEXA40 M1 PO; -JANTOVEN2.5 M2 PO; +JANTOVEN4 M2
[2023-12-16 03:51] LABS: BASOPHILS ABSOLUTE AUTO 0.06 K/mm3 (0.00-0.23); BASOPHILS PERCENT AUTO 1 % (0-2); EOSINOPHILS ABSOLUTE AUTO 0.13 K/mm3 (0.00-0.68); EOSINOPHILS PERCENT AUTO 1 % (0-6); Hematocrit 44.1 % (33.0-51.0); Hemoglobin 14.2 g/dL (11.5-16.0); IMMATURE GRAN ABSOLUTE AUTO 0.05 K/mm3 (0.00-0.10); IMMATURE GRAN PERCENT AUTO 0 % (0-1); LYMPHOCYTES ABSOLUTE AUTO 2.66 K/mm3 (0.84-5.20); LYMPHOCYTES PERCENT AUTO 21 % (21-46); MONOCYTES ABSOLUTE AUTO 1.07 K/mm3 (0.16-1.47); MONOCYTES PERCENT AUTO 8 % (4-13); Mean Corpuscular HGB 29.2 pg (26.0-34.0); Mean Corpuscular HGB Conc 32.2 g/dL (31.5-36.5); Mean Corpuscular Volume 91 fL (80-100); Mean Platelet Volume 9.5 fL (9.1-12.4); NEUTROPHILS ABSOLUTE AUTO 8.83 K/mm3 (1.96-9.15); NEUTROPHILS PERCENT AUTO 69 % (41-73); Platelet Count 314 K/mm3 (150-400); RDW Coefficient Variation 14.4 % (11.7-14.2); RDW Standard Deviation 48.2 fL (35.1-46.3); Red Blood Cell Count 4.87 M/mm3 (3.80-5.20)
[2023-12-16 04:10] LABS: Albumin, Blood 3.4 g/dL (3.4-5.0); Albumin/Globulin Ratio 0.7 (0.8-1.8); Bilirubin, Total 0.5 mg/dL (0.1-1.0); Bun/Creatinine Ratio 15.7 (12.0-20.0); Calcium, Blood 9.5 mg/dL (8.5-10.1); Creatinine, Blood 1.08 mg/dL (0.40-1.00); Globulin, Blood 4.6 g/dL (2.2-4.0); Potassium, Blood 3.5 mmol/L (3.5-5.5)
[2023-12-16] MEDS ORDERED: FUROSEMIDE40 MG PO (13:58)
[2023-12-16 15:32] LABS: International Normalized Ratio 1.06; Prothrombin Time Results 11.1 Sec (9.7-11.5)
[2023-12-16 16:49] VITALS: BP 153/104
--- NOTE | 2023-12-16 18:25 | NUR ---
CALLED CONSULT TO DR LLOYD- PER DR LLOYD THIS PT REQUIRES AN NG TUBE PLACEMENT. PLACED THE ORDER. ATTEMPTED TO PLACE NG TUBE. PLACEMENT WENT SMOOTHLY WITHOUT DIFFICULTY, PT FOLLOWED INSTRUCTIONS WELL. SHE GAGGED AND VOMITED UP ABOUT 20MLS OF CIARA RED BLOOD. NG WAS STABILIZED AND BEFORE PLACEMENT COULD BE VERIFIED THE PT BEGAN TO CRY AND PANICK ASKING STAFF TO TAKE THE TUBE OUT, SAYING SHE CAN'T DO IT. NG TUBE WAS GENTLY REMOVED. CALLED DR LLOYD ABOUT THE ATTEMPT SHE IS AWARE THE PT ATTEMPTED BUT COULD NOT TOLLERATE AN NG TUBE. DR LLOYD WILL SEE THE PT IN THE MORNING. SHE IS TO REMAIN NPO.
[2023-12-16 19:24] VITALS: BP 145/95
--- NOTE | 2023-12-16 20:25 | NUR ---
SHIFT SUMMARY- PT ALERT AND ORIENTED AND SBA WITH AMBULATION. PT IN BED, CALL LIGHT IN REACH. BESIDE REPORT COMPLETED WITH THE NIGHT RN. PT BECAME TEARFUL AND ANXIOUS FEELING LIKE THE "HITS WON'T STOP COMING" SAT AND SPOKE TO HER AFTER REPORT FOR A FEW MINUTES. AFTER SHE STATED SHE FELT A LITTLE BETTER AND WAS NO LONGER TEARFUL. SPOKE TO NIGHT RN ABOUT REQUESTING ANXIETY MEDS FOR THE PT TONIGHT. SHE TAKES TRAZADONE AT BEDTIME NORMALLY.
[2023-12-17 03:26] VITALS: BP 148/99
--- NOTE | 2023-12-17 03:34 | NUR ---
SENIOR ART DIRECTOR SUMMARY BP ELEVATED (NOT ENOUGH FOR ANTIHYPERTENSIVE TO BE GIVEN), OTHERWISE VSS. ALERT AND ORIENTED X 4. DX IS SBO, REMAINS NPO. IVF INFUSING - NS AT 100 ML/HR. BOWEL SOUNDS HEARD, BUT SOMEWHAT HYPOACTIVE. HAS BEEN RESTING QUIETLY WITH OCCASIONAL INTERRUPTIONS TO GET UP TO BEDSIDE COMMODE TO VOID. CALL LIGHT IN REACH. RAILS UP X 2 FOR SAFETY. WILL CONTINUE TO MONITOR
[2023-12-17 05:55] LABS: BASOPHILS ABSOLUTE AUTO 0.05 K/mm3 (0.00-0.23); BASOPHILS PERCENT AUTO 1 % (0-2); EOSINOPHILS ABSOLUTE AUTO 0.12 K/mm3 (0.00-0.68); EOSINOPHILS PERCENT AUTO 1 % (0-6); Hematocrit 39.6 % (33.0-51.0); Hemoglobin 12.7 g/dL (11.5-16.0); IMMATURE GRAN ABSOLUTE AUTO 0.03 K/mm3 (0.00-0.10); IMMATURE GRAN PERCENT AUTO 0 % (0-1); LYMPHOCYTES ABSOLUTE AUTO 2.51 K/mm3 (0.84-5.20); LYMPHOCYTES PERCENT AUTO 29 % (21-46); MONOCYTES ABSOLUTE AUTO 0.95 K/mm3 (0.16-1.47); MONOCYTES PERCENT AUTO 11 % (4-13); Mean Corpuscular HGB 29.9 pg (26.0-34.0); Mean Corpuscular HGB Conc 32.1 g/dL (31.5-36.5); Mean Corpuscular Volume 93 fL (80-100); NEUTROPHILS ABSOLUTE AUTO 4.89 K/mm3 (1.96-9.15); NEUTROPHILS PERCENT AUTO 57 % (41-73); RDW Coefficient Variation 14.7 % (11.7-14.2); RDW Standard Deviation 50.6 fL (35.1-46.3); Red Blood Cell Count 4.25 M/mm3 (3.80-5.20); White Blood Cell Count 8.55 K/mm3 (4.00-11.30)
[2023-12-17 06:20] LABS: Mean Platelet Volume 10.1 fL (9.1-12.4); Platelet Count 258 K/mm3 (150-400)
--- NOTE | 2023-12-17 06:24 | NUR ---
ALLERGY ALERT PT STATES SHE RECEIVED IV ROCEPHIN IN ED. PHARMACY IS AWARE THERE IS AN ALLERGY TO PENICILLIN STATED IN EMAR. DISCUSSED WITH PT ANAPHYLAXIS REACTION TO PENICILLIN BUT NO REACTION TO ROCEPHIN. WILL CONTINUE TO MONITOR FOR SIGNS OF ADVERSE REACTION.
[2023-12-17 06:26] LABS: Bun/Creatinine Ratio 17.9 (12.0-20.0); Calcium, Blood 8.7 mg/dL (8.5-10.1); Creatinine, Blood 1.06 mg/dL (0.40-1.00); Potassium, Blood 4.3 mmol/L (3.5-5.5)
[2023-12-17 07:53] VITALS: BP 167/100
[2023-12-17 15:26] VITALS: BP 153/90
--- NOTE | 2023-12-17 17:25 | NUR ---
PT IS A/OX4, PLEASANT AND COOPEARTIVE, PT IS UP IND TO THE BATHROOM. PT WAS MEDICATED FOR BACK AND LEFT SIDE PAIN X2 SO FAR TODAY. THE PT DENIED ANY NAUSEA AND THE PT WAS STARTED ON CLEAR LIQUIDS, WHICH SO FAR SHE HAS TOLERATED WELL. PT WAS ENCOURGED TO TAKE THE CLEAR LIQUIDS SLOWLY. PTS FAMILY WAS IN TO VISIT TODAY. DR. LLOYD CONSULTED ON THE PATIENT. CALL LIGHT IN REACH.
[2023-12-17 19:51] VITALS: BP 150/97
--- NOTE | 2023-12-18 03:27 | NUR ---
SUGAR MIXER SUMMARY BP AND HR ELEVATED, OTHERWISE, VSS. TOLERATING CL LIQ DIET AND IVF OF NS INFUSING ORDERED. UP TO BEDSIDE COMMODE AD SUNNI. PAIN MEDS ADMIN PER MD ORDERS - PT REQUESTED AND MD ORDERED TYLENOL. MED EFFECTIVE. BOWEL SOUNDS NOTED. PERFORMS SELF OSTOMY CARE. ACCU CHECKS WNL, MIDNIGHT WAS 94. RESTING QUIETLY WITH FEW INTERRUPTIONS. CALL LIGHT IN REACH. RAILS UP X 2 FOR SAFETY. WILL CONTINUE TO MONITOR
[2023-12-18 03:30] VITALS: BP 143/103
[2023-12-18] MEDS ORDERED: DILT180 PO (07:35)
[2023-12-18] MEDS ORDERED: ELIQUIS5 M2 PO (07:38)
[2023-12-18 07:49] VITALS: BP 146/104
--- NOTE | 2023-12-18 11:45 | NUR ---
PT DISCHARGED THE PT VERBALIZED UNDERSTANDING OF THE DC INSTRUCTIONS. THE PT WAS REMINDED TO FOLLOW UP WITH HER PCP SCHEDULED. THE PT WAS TRANSFERED VIA WHEELCHAIR ACCOMPANIED BY THE OUTPATIENT SURGERY RN AND HER DAUGHTER.
== END 2023-12-18 11:34 | disposition home or self-care (01) | DRG 390 ==
LOC: ER 03:14 → MEDS 08:39 → ENPENDDIS 12-18 10:03 → MEDS 12-18 11:34
PROVIDERS: Emergency Medicine; ADMIT Family Medicine
DX: K56.609 Unspecified intestinal obstruction, unspecified as to partial versus complete obstruction (principal); D72.829 Elevated white blood cell count, unspecified; N18.30 Chronic kidney disease, stage 3 unspecified; I48.91 Unspecified atrial fibrillation; Z66 Do not resuscitate; I12.9 Hypertensive chronic kidney disease with stage 1 through stage 4 chronic kidney disease, or unspecified chronic kidney disease; E11.22 Type 2 diabetes mellitus with diabetic chronic kidney disease; F32.A Depression, unspecified; K86.89 Other specified diseases of pancreas; I25.10 Atherosclerotic heart disease of native coronary artery without angina pectoris; G47.00 Insomnia, unspecified; K21.9 Gastro-esophageal reflux disease without esophagitis; Z87.19 Personal history of other diseases of the digestive system; Z79.01 Long term (current) use of anticoagulants; Z90.49 Acquired absence of other specified parts of digestive tract; Z98.890 Other specified postprocedural states; Z90.710 Acquired absence of both cervix and uterus; Z88.8 Allergy status to other drugs, medicaments and biological substances; Z88.0 Allergy status to penicillin; Z88.2 Allergy status to sulfonamides; Z79.899 Other long term (current) drug therapy; Z79.84 Long term (current) use of oral hypoglycemic drugs; Z87.891 Personal history of nicotine dependence
CPT/HCPCS: 36415; 71275; 74174; 80048; 80053; 82947; 83605; 83690; 84484; 85025; 85610; 93005; 93010; 94762; A9270; J0360; J0696; J0780; J1200; J1650; J1885; J2405; J7030; Q9967

== ENCOUNTER 2024-01-22 04:37 | Inpatient (IN) | payer MEDICARE, BC ==
[~2024-01-22] VITALS: Ht 167.6 cm; Wt 99.3 kg
[~2024-01-22 04:37] MED LIST changes: +DILT180 PO; +ELIQUIS5 M2 PO; +FUROSEMIDE40 MG PO
[2024-01-22 05:13] LABS: BASOPHILS ABSOLUTE AUTO 0.04 K/mm3 (0.00-0.23); BASOPHILS PERCENT AUTO 0 % (0-2); EOSINOPHILS PERCENT AUTO 1 % (0-6); Hematocrit 41.2 % (33.0-51.0); Hemoglobin 13.5 g/dL (11.5-16.0); IMMATURE GRAN ABSOLUTE AUTO 0.02 K/mm3 (0.00-0.10); IMMATURE GRAN PERCENT AUTO 0 % (0-1); LYMPHOCYTES ABSOLUTE AUTO 1.57 K/mm3 (0.84-5.20); LYMPHOCYTES PERCENT AUTO 18 % (21-46); MONOCYTES ABSOLUTE AUTO 0.97 K/mm3 (0.16-1.47); MONOCYTES PERCENT AUTO 11 % (4-13); Mean Corpuscular HGB 29.2 pg (26.0-34.0); Mean Corpuscular HGB Conc 32.8 g/dL (31.5-36.5); Mean Corpuscular Volume 89 fL (80-100); NEUTROPHILS ABSOLUTE AUTO 6.27 K/mm3 (1.96-9.15); NEUTROPHILS PERCENT AUTO 70 % (41-73); Platelet Count 298 K/mm3 (150-400); RDW Coefficient Variation 14.2 % (11.7-14.2); RDW Standard Deviation 45.7 fL (35.1-46.3); Red Blood Cell Count 4.63 M/mm3 (3.80-5.20); White Blood Cell Count 8.97 K/mm3 (4.00-11.30)
[2024-01-22 05:40] LABS: Albumin, Blood 3.3 g/dL (3.4-5.0); Albumin/Globulin Ratio 0.8 (0.8-1.8); Bilirubin, Total 0.5 mg/dL (0.1-1.0); Bun/Creatinine Ratio 14.6 (12.0-20.0); Calcium, Blood 9.3 mg/dL (8.5-10.1); Creatinine, Blood 1.03 mg/dL (0.40-1.00); Globulin, Blood 3.9 g/dL (2.2-4.0); Potassium, Blood 3.1 mmol/L (3.5-5.5); Total Protein, Blood 7.2 g/dL (6.4-8.2)
[2024-01-22] MEDS ORDERED: Ondansetron HCl 2 MG / ML 2ML Vial IV ONE ×2 (05:55→06:15)
[2024-01-22] MEDS ORDERED: HYDROmorphone HCl/Pf 1MG SYR IV ONE (06:10)
[2024-01-22] MEDS ORDERED: NS 1,000 ML IV SCH ×2 (06:10→08:20)
[2024-01-22] MEDS ORDERED: Dexamethasone Sod Phos 10 MG/ML 1ML VIAL IV ONE (07:00)
[2024-01-22] MEDS ORDERED: FLU VACC QS2023-24(6MOS UP)/PF 60 MCG/0.5 ML SYRINGE IM SCH (08:20)
[2024-01-22] MEDS ORDERED: Ondansetron HCl 2 MG / ML 2ML Vial IV PRN (08:20)
[2024-01-22] MEDS ORDERED: Potassium Chloride 40 MEQ in NS 250 ML IV ONE ×2 (08:25→16:50)
[2024-01-22] MEDS ORDERED: Ascorbic Acid 500 MG Tab PO SCH (09:00)
[2024-01-22 10:11] VITALS: BP 145/97
[2024-01-22] MEDS ORDERED: Metoprolol Tartrate 1 MG/ML 5 ML VIAL IV SCH (11:04)
[2024-01-22] MEDS ORDERED: HYDROmorphone HCl/Pf 1MG SYR IV PRN (11:05)
[2024-01-22 15:10] VITALS: BP 102/86
[2024-01-22] MEDS ORDERED: Diltiazem HCl 5 MG / ML 5ML Vial IV ONE (15:45)
[2024-01-22 16:06] VITALS: BP 133/99
--- NOTE | 2024-01-22 16:07 | NUR ---
SHIFT SUMMARY PT ADMITTED FOR SBO AND CURRENTLY NON-SURGICAL. IV STEROIDS STARTED TO REDUCE INFLAMMATION. PT HAS A COLOSTOMY AND MANAGES HER OWN CARE. A/O X4; PLEASANT AND COOPERATIVE WITH CARE. PT'S POTASSIUM IS LOW AT 3.1 BUT DECLINES ALL POTASSIUM REPLACEMENT. PT SAYS THAT POTASSIUM IN IV OR PILL FORM MAKES HER VERY SICK AND SHE WILL NOT TAKE IT. PUT ON TELEMETRY. HX OF AFIB W/RVR. HR UP TO THE 150'S-160'S AT TIMES THIS SHIFT. DOCTOR NOTIFIED AND NEW ORDERS RECEIVED. PAIN CONTROLLED PER EMR. NO REPORTED NAUSEA THIS SHIFT. PT IS IND/SBA TO GET UP. CALL LIGHT IN REACH AND PT IS ABLE TO MAKE HER NEEDS KNOWN.
--- NOTE | 2024-01-22 16:53 | NUR ---
REPORT RECEIVED FROM RITO BOOKER. THIS RN IN ROOM FOR ROUNDING AT 1600, VS TAKEN AND TELE REPORTS HR CONTINUES TO SUSTAIN IN THE 120-130'S. PT DENIES CP,PRESSURE. ORDERED IV CARDIZEM GIVEN AT 1605.
[2024-01-22 17:20] VITALS: BP 121/87
--- NOTE | 2024-01-22 18:08 | NUR ---
NO ACUTE CHANGE SINCE RECEIVED REPORT, PT AGREED TO BE GIVEN ZOFRAN AND THEN TRY THE IV POTASSIUM. PT HAS HAD NO COMPLIANT OF N/V SO FAR. VSS TONIGHT, HR TRENDING DOWN 115-120 AFTER ORDERS DOSES OF IV CARDIZEM AND METOPROLOL. SCD'S ALSO APPLIED. CALL LIGHT IN REACH.
[2024-01-22 19:45] VITALS: BP 147/95
[2024-01-23 00:11] VITALS: BP 131/96
[2024-01-23 04:04] LABS: Hematocrit 37.4 % (33.0-51.0); Hemoglobin 11.9 g/dL (11.5-16.0); Mean Corpuscular HGB Conc 31.8 g/dL (31.5-36.5); Mean Corpuscular Volume 91 fL (80-100); Mean Platelet Volume 9.4 fL (9.1-12.4); Platelet Count 235 K/mm3 (150-400); RDW Coefficient Variation 14.4 % (11.7-14.2); RDW Standard Deviation 47.8 fL (35.1-46.3); White Blood Cell Count 6.56 K/mm3 (4.00-11.30)
[2024-01-23 04:27] LABS: Bun/Creatinine Ratio 17.9 (12.0-20.0); Calcium, Blood 8.7 mg/dL (8.5-10.1); Creatinine, Blood 0.89 mg/dL (0.40-1.00); Potassium, Blood 4.5 mmol/L (3.5-5.5)
[2024-01-23 05:09] VITALS: BP 142/89
--- NOTE | 2024-01-23 06:48 | NUR ---
SHIFT SUMMARY A&O X4, RA, VSS, AFIB 110-130 PER BRINEYARD SUPERVISOR, Q6 IV LOPRESSOR, NO CP/PRESSURE, PAIN WNL, NPO, VOIDING WNL, STOMA IS RED/MOIST, PRODUCING GAS & STOOL. NS INFUSING @75 ML/HR. REPORT GIVEN TO JAMES VERAS, CALL LIGHT IN REACH
[2024-01-23 07:10] VITALS: BP 138/94
[2024-01-23] MEDS ORDERED: PredniSONE 20 MG Tab PO SCH (09:00)
[2024-01-23] MEDS ORDERED: Citalopram Hydrobromide 20 MG Tab PO SCH (10:20)
[2024-01-23] MEDS ORDERED: Furosemide 40 MG Tab PO SCH (10:25)
[2024-01-23] MEDS ORDERED: Diltiazem HCl 180 MG Cap.CD PO SCH (10:30)
[2024-01-23] MEDS ORDERED: Apixaban 5 MG Tab PO SCH (10:30)
--- NOTE | 2024-01-23 13:51 | NUR ---
PREDNISONE CHECKED WITH SURGERY REGARDING PREDNISONE, RECEIVED VERBAL ORDER TO DC THIS MEDICATION.
[2024-01-23] MEDS ORDERED: DOCU100 PO (14:00)
--- NOTE | 2024-01-23 15:20 | NUR ---
DISCHARGE SUMMARY S/P NO OUTPUT FROM STOMA, A/OX4, VSS, TOLERATING PO, DENIES PAIN, INDEPENEDENT IN THE ROOM, VOIDING WELL. PT HAD MODERATE AMOUNT OF SOFT BROWN OUTPUT FROM HER STOMA TODAY, ABLE TO MANAGE THIS INDEPENDENTLY INCLUDING EMPTYING AND BURPING. PT CLEARED TO DISCHARGE BY SURGERY. DISCUSSED DISCHARGE INFORMATION WITH HER INCLUDING HOME CARE, MEDICATIONS WHICH WERE FAXED TO [facility], AND FOLLOW UP APPOINTMENTS. PT REPORTS SHE ALREADY HAS AN APPOITMENT WITH SURGERY IN JANUARY WHICH WAS CLEARED BY DR. FLORES TO WORK FOR HER FOLLOW UP. NO QUESTIONS AT TIME OF DISCHARGE, IV REMOVED WHILE DISCUSSING DC INSTRUCTIONS. PT ESCORTED OUT VIA WC TO PRIVATE AUTO TO GO HOME.
[2024-01-23] MEDS ORDERED: MetFORMIN HCl 500 mg PO SCH (17:00)
[2024-01-23] MEDS ORDERED: TraZODone HCl 50 MG Tab PO PRN (21:00)
[2024-01-24] MEDS ORDERED: Multivitamins 1 Tab PO SCH (09:00)
[2024-01-24] MEDS ORDERED: Atenolol 50 MG Tab PO SCH (09:00)
[2024-01-24] MEDS ORDERED: Ascorbic Acid 500 MG Tab PO SCH (09:00)
[2024-01-24] MEDS ORDERED: Triamter/HCthiazide 37.5/25 MG 1 Tab PO SCH (09:00)
[2024-01-24] MEDS ORDERED: Cholecalciferol 1000 Unit Tablet (=25MCG) PO SCH (09:00)
== END 2024-01-23 14:09 | disposition home or self-care (01) | DRG 393 ==
LOC: ER 04:37 → SURS 08:18
PROVIDERS: Emergency Medicine; ADMIT Internal Medicine
DX: K94.09 Other complications of colostomy (principal); J96.01 Acute respiratory failure with hypoxia; I13.0 Hypertensive heart and chronic kidney disease with heart failure and stage 1 through stage 4 chronic kidney disease, or unspecified chronic kidney disease; I48.20 Chronic atrial fibrillation, unspecified; K56.699 Other intestinal obstruction unspecified as to partial versus complete obstruction; E87.6 Hypokalemia; T40.605A Adverse effect of unspecified narcotics, initial encounter; G47.33 Obstructive sleep apnea (adult) (pediatric); Z66 Do not resuscitate; F32.A Depression, unspecified; I50.9 Heart failure, unspecified; E66.9 Obesity, unspecified; L08.9 Local infection of the skin and subcutaneous tissue, unspecified; I25.10 Atherosclerotic heart disease of native coronary artery without angina pectoris; G47.00 Insomnia, unspecified; Z88.0 Allergy status to penicillin; Z88.2 Allergy status to sulfonamides; Z88.8 Allergy status to other drugs, medicaments and biological substances; Z88.1 Allergy status to other antibiotic agents; Z90.49 Acquired absence of other specified parts of digestive tract; Z79.01 Long term (current) use of anticoagulants; Z68.35 Body mass index [BMI] 35.0-35.9, adult; Z87.891 Personal history of nicotine dependence
CPT/HCPCS: 36415; 74177; 80048; 80053; 83605; 85025; 85027; 93005; 93010; 94760; 96361; 96374-59; 96375; 99285-25; A9270; J1100; J1170; J2405; J3480; J7030; J7050; J7512; Q9967

== ENCOUNTER 2025-04-13 14:01 | Emergency (ER) | payer MEDICARE, BC ==
[~2025-04-13] VITALS: Ht 167.6 cm; Wt 102.1 kg
[2025-04-13 21:30] VITALS: BP 165/88
== END 2025-04-13 21:30 | disposition home or self-care (01) ==
LOC: ER 14:01
DX: M54.31 Sciatica, right side (principal); R10.10 Upper abdominal pain, unspecified; K21.9 Gastro-esophageal reflux disease without esophagitis; G47.00 Insomnia, unspecified; I48.91 Unspecified atrial fibrillation; Z87.891 Personal history of nicotine dependence; Z79.899 Other long term (current) drug therapy; Z88.0 Allergy status to penicillin; Z88.2 Allergy status to sulfonamides; Z88.6 Allergy status to analgesic agent; Z88.1 Allergy status to other antibiotic agents; Z88.8 Allergy status to other drugs, medicaments and biological substances

== ENCOUNTER 2025-09-06 04:58 | Observation (INO) | payer MEDICARE, BC ==
[~2025-09-06] VITALS: Ht 167.6 cm; Wt 102.1 kg
[2025-09-06] VITALS (11 sets, daily range): BP systolic 92–155; BP diastolic 53–109
[~2025-09-06 04:58] MED LIST changes: +AZIT250 PO; +METR500 PO; +OXYC5 PO; +VISBIOME 112.51 EACH PO
[2025-09-06 06:05] LABS: BASOPHILS ABSOLUTE AUTO 0.05 K/mm3 (0.00-0.23); BASOPHILS PERCENT AUTO 1 % (0-2); EOSINOPHILS ABSOLUTE AUTO 0.11 K/mm3 (0.00-0.68); EOSINOPHILS PERCENT AUTO 1 % (0-6); Hematocrit 34.2 % (33.0-51.0); Hemoglobin 11.4 g/dL (11.5-16.0); IMMATURE GRAN ABSOLUTE AUTO 0.03 K/mm3 (0.00-0.10); IMMATURE GRAN PERCENT AUTO 0 % (0-1); LYMPHOCYTES ABSOLUTE AUTO 1.40 K/mm3 (0.84-5.20); LYMPHOCYTES PERCENT AUTO 15 % (21-46); MONOCYTES ABSOLUTE AUTO 1.08 K/mm3 (0.16-1.47); MONOCYTES PERCENT AUTO 11 % (4-13); Mean Corpuscular HGB Conc 33.3 g/dL (31.5-36.5); Mean Corpuscular Volume 96 fL (80-100); NEUTROPHILS ABSOLUTE AUTO 6.85 K/mm3 (1.96-9.15); NEUTROPHILS PERCENT AUTO 72 % (41-73); NRBC ABSOLUTE 0.00 K/mm3 (0.00-0.02); NRBC Auto 0.0 /100 WBC (0.0-0.2); Platelet Count 252 K/mm3 (150-400); RDW Coefficient Variation 14.0 % (11.7-14.2); RDW Standard Deviation 49.9 fL (35.1-46.3)
[2025-09-06 06:23] LABS: Alanine Aminotransfer (ALT/SGP 15.0 U/L (12-78); Albumin, Blood 2.6 g/dL (3.4-5.0); Albumin/Globulin Ratio 0.7 (0.8-1.8); Anion Gap 7.0 mmol/L (3-11); Aspartate Aminotrans (AST/SGOT 22.0 U/L (12-37); Bilirubin, Total 0.7 mg/dL (0.1-1.0); Blood Urea Nitrogen 15.0 mg/dL (8-24); CO2, Blood 24.0 mmol/L (21-32); Calcium, Blood 8.4 mg/dL (8.5-10.1); Chloride, Blood 111.0 mmol/L (98-108); Creatinine, Blood 0.97 mg/dL (0.40-1.00); Globulin, Blood 3.8 g/dL (2.2-4.0); Glucose, Blood 109.0 mg/dL (70-99); Potassium, Blood 3.7 mmol/L (3.5-5.5); Sodium, Blood 138.0 mmol/L (136-145); Total Protein, Blood 6.4 g/dL (6.4-8.2)
[2025-09-06] MEDS ORDERED: Morphine Sulfate 4 MG/1 ML Injection IV ONE ×2 (06:35→08:05)
[2025-09-06] MEDS ORDERED: Diltiazem HCl 180 MG Cap.CD PO ONE (06:35)
[2025-09-06 06:39] LABS: Magnesium, Blood 2.1 mg/dL (1.6-2.4)
[2025-09-06 07:24] LABS: Source, Urine Clean Catch
[2025-09-06 07:29] LABS: Bilirubin, Urine Neg (Neg); Color, Urine Yellow (P-Yellow); Glucose Qualitative, Urine Neg (Neg); Ketones, Urine Neg (Neg); Leukocyte Esterase, Urine 3+ (Neg); Protein, Urine Neg (Neg); Specific Gravity, Urine 1.015 (1.003-1.022); Urobilinogen, Urine NORM (Normal)
[2025-09-06 07:47] LABS: Red Blood Cells, Urine 0-2 /hpf (0-2); White Blood Cells, Urine 0-2 /hpf (0-5)
[2025-09-06] MEDS ORDERED: Ondansetron HCl 2 MG / ML 2ML Vial IV ONE (08:05)
[2025-09-06] MEDS ORDERED: NS 1,000 ML IV SCH (09:25)
[2025-09-06 14:30] LABS: Hematocrit 32.9 % (33.0-51.0); Hemoglobin 10.9 g/dL (11.5-16.0)
[2025-09-06] MEDS ORDERED: NS 500 ML IV ONE (15:00)
[2025-09-06] MEDS ORDERED: FLU VACC TS2025(65UP)/MF59C/PF 45 MCG/0.5 ML SYRINGE IM SCH (16:00)
[2025-09-06] MEDS ORDERED: Lidocaine 4% 1 Patch TOP PRN (16:05)
--- NOTE | 2025-09-06 16:36 | NUR ---
ADMIT NOTE/TRANSFER OF CARE PT TO ROOM AT APPROX 1050, PT ORIENTED TO ROOM AND CALL LIGHT. ORIENTED TO FALL RISK AND INGITION RISK. PT ALERT, ORIENTED X4; CALM AND COOPRATIVE WITH CARE. PT DENIES PAIN, CHEST PAIN/PRESSURE, SOB AND NUMB/TINGLING. TELE AFIB 70-90'S, TRENDED DOWN TO 50-60, OCCASIONALLY DROPPING TO 40'S, BP 130, DOWN TO 90'S, PT REPORTING DIZZINESS, NOTIFIED DR VINSON, HELD LASIX AND GAVE NS 500 BOLUS, BP TRENDING UP. SPO2 >90% ON RA, BREATHING EVEN AND UNALBORED. ABD SOFT, TENDER IN UPPER QUAD; NAUSEA NOTED, DENIES NEED FOR INTERVENTION. OTHER VSS. BRUSING NOTED TO R BUTTOCKS/HIP, PT DENIES FALLING AT HOME. PT REPORTS HAVING DIZZINESS AT HOME AND DOES NOT CHECK BP OR HEART BEFORE TAKING MEDICATIONS, EDUCATED PT TO TAKE BP/HR AT HOME PRIOR TO TAKING MEDICATIONS.
[2025-09-06] MEDS ORDERED: Docusate Sodium/Senna 1 Tab PO PRN (16:45)
[2025-09-06] MEDS ORDERED: Polyethylene Glycol 3350 17 gm PO PRN (16:50)
--- NOTE | 2025-09-06 18:35 | NUR ---
ASSUMPTION OF CARE/SHIFT SUMMARY: ASSUMED CARE AT APPROX 1645. A/OX4, ENDORSES INTERMITTENT DIZZINESS, DENIES HX OF FALLING. 1 PERSON SBA TO BATHROOM W/CANE. SPO2 >92% ON RA. PT IN BED, CALL LIGHT WITHIN REACH, DENIES ADDITIONAL NEEDS AT THIS TIME.
[2025-09-07 03:46] LABS: BASOPHILS ABSOLUTE AUTO 0.06 K/mm3 (0.00-0.23); BASOPHILS PERCENT AUTO 1 % (0-2); EOSINOPHILS ABSOLUTE AUTO 0.14 K/mm3 (0.00-0.68); EOSINOPHILS PERCENT AUTO 2 % (0-6); Hematocrit 33.5 % (33.0-51.0); Hemoglobin 10.5 g/dL (11.5-16.0); IMMATURE GRAN ABSOLUTE AUTO 0.02 K/mm3 (0.00-0.10); IMMATURE GRAN PERCENT AUTO 0 % (0-1); LYMPHOCYTES ABSOLUTE AUTO 1.61 K/mm3 (0.84-5.20); LYMPHOCYTES PERCENT AUTO 20 % (21-46); MONOCYTES ABSOLUTE AUTO 1.14 K/mm3 (0.16-1.47); MONOCYTES PERCENT AUTO 14 % (4-13); Mean Corpuscular HGB Conc 31.3 g/dL (31.5-36.5); NEUTROPHILS ABSOLUTE AUTO 5.28 K/mm3 (1.96-9.15); NEUTROPHILS PERCENT AUTO 64 % (41-73); NRBC ABSOLUTE 0.00 K/mm3 (0.00-0.02); NRBC Auto 0.0 /100 WBC (0.0-0.2); Platelet Count 248 K/mm3 (150-400); RDW Coefficient Variation 14.1 % (11.7-14.2); RDW Standard Deviation 52.8 fL (35.1-46.3)
[2025-09-07 03:47] LABS: Mean Corpuscular Volume 102 fL (80-100)
[2025-09-07 04:09] LABS: Anion Gap 7.0 mmol/L (3-11); Blood Urea Nitrogen 18.0 mg/dL (8-24); CO2, Blood 26.0 mmol/L (21-32); Calcium, Blood 8.5 mg/dL (8.5-10.1); Chloride, Blood 108.0 mmol/L (98-108); Creatinine, Blood 1.12 mg/dL (0.40-1.00); Glucose, Blood 96.0 mg/dL (70-99); Potassium, Blood 4.0 mmol/L (3.5-5.5); Sodium, Blood 137.0 mmol/L (136-145)
[2025-09-07 04:53] VITALS: BP 130/82
--- NOTE | 2025-09-07 05:26 | NUR ---
SHIFT SUMMARY PATIENT A/OX4. NO OBVIOUS DISTRESS. DENIED CP. AFIB RATE CONTROLLED ON MONITOR 70-80'S. PATIENT UP TO RR SEVERAL TIMES WITH SBA AND CANE. PATIENT MEDICATED WITH TRAZADONE AND SLEPT WELL MOST OF THE SHIFT. VITALS STABLE. ECCYMOSIS TO RIGHT HIP OUTLINED WITH PEN AND SIZE DID NOT INCREASE DURING SHIFT. NO ACUTE EVENTS OVERNIGHT. ABLE TO MAKE NEEDS KNOWN WITH CALL LIGHT IN REACH. BED KEPT IN LOWEST POSITION. PLAN OF CARE ONGOING.
[2025-09-07 07:45] VITALS: BP 143/107
[2025-09-07] MEDS ORDERED: Diltiazem HCl 180 MG Cap.CD PO SCH ×2 (09:00→10:00)
[2025-09-07] MEDS ORDERED: Multivitamins/Minerals 1 Tab PO SCH (09:00)
[2025-09-07] MEDS ORDERED: Cholecalciferol 1000 Unit Tablet (=25MCG) PO SCH (09:00)
[2025-09-07 12:15] VITALS: BP 132/88
--- NOTE | 2025-09-07 16:51 | NUR ---
DISCHARGE SUMMARY REVIEWED DISCHARGE PACKET WITH PATIENT AND PATIENT'S DAUGHTER AT 1620. PT DISCHARGED IN WHEELCHAIR ON ROOM AIR. SHE TRANSFERRED FROM BED TO WHEELCHAIR INDEPENDENTLY, TOLERATED WELL, DENIES DIZZINESS OR WEAKNESS. PATIENT BELONGINGS AND PACKET WITH HER AT TIME OF DISCHARGE.
[2025-09-07 17:20] VITALS: BP 111/55
--- NOTE | 2025-09-07 17:43 | NUR ---
UPDATE PT A&O X 1, CONTINUES TO ASK TO GO TO THE LIVING ROOM, BELIEVES THAT THERE IS SOMEONE ELSE IN THE ROOM WITH HIM, AND ASKS TO GO TO THE HOSPITAL. PATIENT DOES NOT RESPOND WELL TO REDIRECTION. HE IS NOT COOPERATIVE WITH VITALS OR REAPPLYING NC. PLACED NC ON PATIENT. PT STATES TAKE IT OFF OR I WILL CHEW THROUGH THIS LINE. PATIENT PROCEEDED TO CHEW ON NC UNTIL THIS RN REMOVED IT FROM HIS MOUTH.
== END 2025-09-07 16:50 | disposition home health service (06) ==
LOC: ER 04:58 → PCU 04:59
PROVIDERS: Emergency Medicine; ADMIT Hospitalist
DX: I48.20 Chronic atrial fibrillation, unspecified (principal); R53.1 Weakness; F51.04 Psychophysiologic insomnia; F32.A Depression, unspecified; I25.10 Atherosclerotic heart disease of native coronary artery without angina pectoris; S70.01XA Contusion of right hip, initial encounter; X58.XXXA Exposure to other specified factors, initial encounter; J96.01 Acute respiratory failure with hypoxia; K59.00 Constipation, unspecified; R19.7 Diarrhea, unspecified; I51.7 Cardiomegaly; K21.9 Gastro-esophageal reflux disease without esophagitis; Z79.01 Long term (current) use of anticoagulants; Z79.899 Other long term (current) drug therapy; Z87.891 Personal history of nicotine dependence; Z88.0 Allergy status to penicillin; Z88.2 Allergy status to sulfonamides; Z88.6 Allergy status to analgesic agent; Z88.1 Allergy status to other antibiotic agents; Z88.8 Allergy status to other drugs, medicaments and biological substances; Z90.49 Acquired absence of other specified parts of digestive tract; Z90.710 Acquired absence of both cervix and uterus
CPT/HCPCS: 36415; 71045; 73502; 80048; 80053; 81001; 83690; 83735; 84443; 84484; 85014; 85018; 85025; 87086; 90653; 93005; 93010; 96374; 96375; 96376; 97112; 97161; 99285-25; A9270; G0008; G0378; J2270; J2405; J7040

== ENCOUNTER 2025-09-19 14:01 | Emergency (ER) | payer MEDICARE, BC ==
[~2025-09-19] VITALS: Ht 167.6 cm; Wt 103.0 kg
[2025-09-19 15:31] VITALS: BP 136/79
[2025-09-19] MEDS ORDERED: HYDROcodone 5-APAP 325 TAB PO ONE (16:45)
[2025-09-19] MEDS ORDERED: HYDR1TAB94 PO (16:52)
== END 2025-09-19 17:12 | disposition home or self-care (01) ==
LOC: ER 14:01
DX: S70.01XA Contusion of right hip, initial encounter (principal); X58.XXXA Exposure to other specified factors, initial encounter; I45.10 Unspecified right bundle-branch block; I48.91 Unspecified atrial fibrillation; Z79.01 Long term (current) use of anticoagulants; Z87.891 Personal history of nicotine dependence
CPT/HCPCS: 72192; 93005; 93010; 99284-25; A9270